=== PATIENT | male | born 1960 | race Caucasian/White ===

== ENCOUNTER 2018-05-23 17:57 | Inpatient (IN) ==
[2018-05-23] MEDS ORDERED: Sod Chloride 0.9% Inj 1,000 ML IV.SIG ONE (18:08)
[2018-05-23] MEDS ORDERED: Pantoprazole Inj 40 MG Vial IV.PUSH ONE (18:10)
--- NOTE | 2018-05-23 18:36 | CT ---
EXAM DATE: 05/23/2018 6:19 PM EST AGE/SEX: 57 years / Male INDICATIONS: Fell, Hit head, Positive Loss of Consciousness CLINICAL DATA: This is the patient's initial encounter. Patient reports that signs and symptoms have been present for 1 day and indicates a pain score of 7/10. MEDICAL/SURGICAL HISTORY: None. None. RADIATION DOSE: 56.12 CTDI (mGy) COMPARISON: No prior exams available for comparison. TECHNIQUE: CT of the head without contrast. Using automated exposure control and adjustment of the mA and/or kV according to patient size, radiation dose was kept as low as reasonably achievable to ob tain optimal diagnostic quality images. DICOM format image data is available electronically for revi ew and comparison. FINDINGS: Cerebrum: There is a focal hyperdensity in the high convexity right parietal occipital region (image #25) measuring 7 mm. No effacement of the adjacent sulci. There is good hope-white matter differenti ation. The ventricles are normal in size. No extra-axial fluid or blood. Posterior Fossa: The cerebellum and brainstem are intact. The 4th ventricle is midline. The cerebe llopontine angle is unremarkable. Extracranial: The visualized portion of the orbits is intact. Skull: No radiopaque foreign bodies in the scalp. The calvaria is intact. No evidence of skull fract ure. CONCLUSION: 1. 7 mm hyperdensity in one right high parietal occipital gyrus characteristic of acute hemorrhage. 2. No evidence of mass effect or cerebral edema. 3. Recommend follow-up CT scans. . . Electronically signed by: Lionel Acharya MD Board Certified Radiologist 05/23/2018 6:35 PM EST
[2018-05-23 18:41] LABS: Baso # (Auto) 0.2 th/mm3 (0.0-0.2); Baso % (Auto) 1.6 % (0.0-2.0); Eos # (Auto) 0.2 th/mm3 (0.0-0.4); Eos % (Auto) 1.7 % (0.0-4.0); Hematocrit 31.1 % (39.0-51.0); Hemoglobin 10.5 gm/dL (13.0-17.0); Lymph # (Auto) 4.5 th/mm3 (1.0-4.8); Lymph % (Auto) 32.7 % (9.0-44.0); Mean Corpuscular HGB Conc 33.9 % (32.0-36.0); Mean Corpuscular Hemoglobin 29.6 pg (27.0-34.0); Mean Corpuscular Volume 87.4 fL (80.0-100.0); Mean Platelet Volume 8.4 fL (7.0-11.0); Mono # (Auto) 0.9 th/mm3 (0.0-0.9); Mono % (Auto) 6.2 % (0.0-8.0); Neut % (Auto) 57.8 % (16.0-70.0); Platelet Count 294 th/mm3 (150-450); Red Blood Count 3.56 mil/mm3 (4.50-5.90); Red Cell Distribution Width 13.1 % (11.6-17.2); White Blood Count 13.8 th/mm3 (4.0-11.0)
[2018-05-23 18:50] LABS: Chloride 105 meq/L (98-107); Potassium 3.8 meq/L (3.5-5.1); Sodium 138 meq/L (136-145)
[2018-05-23 18:54] LABS: Albumin 3.3 g/dL (3.4-5.0); Anion Gap 10 meq/L (5-15); Blood Urea Nitrogen 39 mg/dL (7-18); Calcium 8.5 mg/dL (8.5-10.1); Carbon Dioxide 22.8 meq/L (21.0-32.0); Glucose,Random 128 mg/dL (74-106); Lipase 105 U/L (73-393); Magnesium 2.1 mg/dL (1.5-2.5)
[2018-05-23 18:56] LABS: INR 1.1 Ratio; Prothrombin Time 10.7 sec (9.8-11.6)
--- NOTE | 2018-05-23 18:56 | ED ---
HPI General Chief complaint: Head Injury Stated complaint: Seizure Time Seen by Provider: 05/23/18 18:00 Source: patient Mode of arrival: wheelchair Limitations: no limitations History of Present Illness HPI narrative: Patient is a 57-year-old male who comes in after a syncopal episode today. Per family, he has been having abdominal pain and black stools for about a week. He has history of diverticulitis and says he started taking antibiotics 3 days ago. He started feeling much worse today. He came out of the bathroom and passed out and hit his head. Since hitting his head, he has been vomiting and complaining of head pain. He denies fever or chills. He denies any urinary symptoms. Severity is moderate to severe. Related Data Allergies Allergy/AdvReac Type Severity Reaction Status Date / Time cashew nut Allergy Severe THROAT Unverified 11/12/16 15:17 SWELLING Review of Systems ROS: all other systems reviewed are negative Constitutional Denies fever(s) Eyes Denies blurry vision ENT Reports headache(s) Cardiovascular Denies chest pain and Reports diaphoresis Respiratory Denies cough and Denies dyspnea Gastrointestinal Reports abdominal pain and Reports melena Musculoskeletal Denies myalgias and Denies arthralgias Integumentary/Breasts Denies sores and Denies wounds Neurologic Denies focal weakness and Denies numbness [facility] Medical History Medical History Diverticulitis (Acute) Surgical History Surgical History History of back surgery (Acute) S/P right knee arthroscopy (Acute) Social History Social History Substance History: No History of Abuse Second Hand Smoke Exposure: No Smoking Status: Never smoker How Often Do You Have a Drink Containing Alcohol: 2 to 4 times a month Recent Travel in [facility] within the Last 8 Weeks: No Recent Out of Country Travel within the Last 8 Weeks: No Immunization History Tetanus Immunization: Unsure Exam Narrative Exam Narrative: GENERAL: Awake and alert, appears in distress. Diaphoretic. SKIN: No signs of infection, he is diaphoretic. Appears pale. HEAD: Atraumatic. Normocephalic. EYES: Pupils equal and round and reactive. No scleral icterus. EOMI. ENT: Mucous membranes pink and moist. NECK: Trachea midline. No JVD. CARDIOVASCULAR: Regular rate and rhythm. No murmur appreciated. RESPIRATORY: No accessory muscle use. Clear to auscultation. Breath sounds equal bilaterally. GASTROINTESTINAL: Abdomen soft, nondistended. Tender to palpation of LLQ. MUSCULOSKELETAL: No obvious deformities. No clubbing. No cyanosis. No edema. NEUROLOGICAL: Awake and alert. No obvious cranial nerve deficits. Motor grossly within normal limits. Normal speech. PSYCHIATRIC: Appropriate mood and affect; insight and judgment normal. Procedures Hemaprompt Stool Procedural Steps Taken: specimen placed in appropriate test area, developer placed on specimen and control areas and controls appropriately positive and negative Hemaprompt Stool Result: positive Course Initial Documented Vital Signs Pulse Rate 83 05/23/18 18:00 Respiratory Rate 18 05/23/18 18:00 Blood Pressure 103/48 L 05/23/18 18:00 Pulse Oximetry 95 05/23/18 18:00 Last Documented Vital Signs Temperature 98.1 F 05/23/18 18:38 Pulse Rate 74 05/23/18 18:38 Respiratory Rate 18 05/23/18 18:00 Blood Pressure 116/66 05/23/18 18:38 Pulse Oximetry 96 05/23/18 18:38 Medical Decision Making [facility] Narrative Medical decision making narrative: Patient is a 57 year old male who comes in after a syncopal episode today. He has had abdominal pain and dark stools for a week. Exam shows LLQ abdominal tenderness. Stool is positive for occult blood. Taken to CT for head CT based on head injury and new vomiting. IV established, labs sent. Given IVF, Zofran. Given Protonix. Blood ordered, but not given yet. CT head concerning for hemorrhage. Patient to be admitted to the ICU. Medical Screen Exam Complete: Yes Emergency Medical Condition: Yes Differential Diagnosis Differential Diagnosis: GI bleed, diverticulitis, ICH, perforation Medical Records Medical records reviewed: Yes I reviewed the patient's medical records. Lab Data Lab results reviewed: Yes I reviewed the patient's lab results. Result diagrams: 05/23/18 18:25 05/23/18 18:25 Lab Results 05/23/18 05/23/18 05/23/18 Range/Units 18:02 18:25 18:25 CBC w Diff Auto diff final WBC 13.8 H (4.0-11.0) th/mm3 RBC 3.56 L (4.50-5.90) mil/mm3 Hgb 10.5 L (13.0-17.0) gm/dL Hct 31.1 L (39.0-51.0) % MCV 87.4 (80.0-100.0) fL MCH 29.6 (27.0-34.0) pg MCHC 33.9 (32.0-36.0) % RDW 13.1 (11.6-17.2) % Plt Count 294 (150-450) th/mm3 MPV 8.4 (7.0-11.0) fL Neut % (Auto) 57.8 (16.0-70.0) % Lymph % (Auto) 32.7 (9.0-44.0) % Morgan % (Auto) 6.2 (0.0-8.0) % Eos % (Auto) 1.7 (0.0-4.0) % Baso % (Auto) 1.6 (0.0-2.0) % Neut # (Auto) 8.0 H (1.8-7.7) th/mm3 Lymph # (Auto) 4.5 (1.0-4.8) th/mm3 Morgan # (Auto) 0.9 (0.0-0.9) th/mm3 Eos # (Auto) 0.2 (0.0-0.4) th/mm3 Baso # (Auto) 0.2 (0.0-0.2) th/mm3 WBC Differential . Differential Comment . PT 10.7 (9.8-11.6) sec INR 1.1 Ratio APTT 21.0 L (23.4-31.7) sec Sodium (136-145) meq/L Potassium (3.5-5.1) meq/L Chloride (98-107) meq/L Carbon Dioxide (21.0-32.0) meq/L Anion Gap (5-15) meq/L BUN (7-18) mg/dL Creatinine (0.60-1.30) mg/dL Estimated GFR (>89) mL/min POC Glucose 124 (68-110) mg/dl Random Glucose (74-106) mg/dL Calcium (8.5-10.1) mg/dL Magnesium (1.5-2.5) mg/dL Total Bilirubin (0.2-1.0) mg/dL AST (15-37) U/L ALT (12-78) U/L Total Protein (6.4-8.2) g/dL Albumin (3.4-5.0) g/dL Lipase (73-393) U/L 05/23/18 Range/Units 18:25 CBC w Diff WBC (4.0-11.0) th/mm3 RBC (4.50-5.90) mil/mm3 Hgb (13.0-17.0) gm/dL Hct (39.0-51.0) % MCV (80.0-100.0) fL MCH (27.0-34.0) pg MCHC (32.0-36.0) % RDW (11.6-17.2) % Plt Count (150-450) th/mm3 MPV (7.0-11.0) fL Neut % (Auto) (16.0-70.0) % Lymph % (Auto) (9.0-44.0) % Morgan % (Auto) (0.0-8.0) % Eos % (Auto) (0.0-4.0) % Baso % (Auto) (0.0-2.0) % Neut # (Auto) (1.8-7.7) th/mm3 Lymph # (Auto) (1.0-4.8) th/mm3 Morgan # (Auto) (0.0-0.9) th/mm3 Eos # (Auto) (0.0-0.4) th/mm3 Baso # (Auto) (0.0-0.2) th/mm3 WBC Differential Differential Comment PT (9.8-11.6) sec INR Ratio APTT (23.4-31.7) sec Sodium 138 (136-145) meq/L Potassium 3.8 (3.5-5.1) meq/L Chloride 105 (98-107) meq/L Carbon Dioxide 22.8 (21.0-32.0) meq/L Anion Gap 10 (5-15) meq/L BUN 39 H (7-18) mg/dL Creatinine 1.40 H (0.60-1.30) mg/dL Estimated GFR 52 L (>89) mL/min POC Glucose (68-110) mg/dl Random Glucose 128 H (74-106) mg/dL Calcium 8.5 (8.5-10.1) mg/dL Magnesium 2.1 (1.5-2.5) mg/dL Total Bilirubin 0.3 (0.2-1.0) mg/dL AST 14 L (15-37) U/L ALT 22 (12-78) U/L Total Protein 6.4 (6.4-8.2) g/dL Albumin 3.3 L (3.4-5.0) g/dL Lipase 105 (73-393) U/L Imaging Data Radiologist's impression: Head CT 05/23/18 18:00 CONCLUSION: 1. 7 mm hyperdensity in one right high parietal occipital gyrus characteristic of acute hemorrhage. 2. No evidence of mass effect or cerebral edema. 3. Recommend follow-up CT scans. . . Discharge Plan Discharge Disposition Patient Disposition: ED Admit(ED Internal Use Only) Discharge Condition Condition: Critical Discharge Details Diagnosis: Acute GI bleeding, Intraparenchymal hemorrhage of brain Physicians Team ED Provider: Orin Aquino Primary Care Provider: Nnamdi Miller Discharge Interventions Interventions: Vital Signs Last Done: 05/23/18 18:38 Status ED Status: With Doctor
[2018-05-23 18:57] LABS: Alanine Aminotransferase 22 U/L (12-78); Aspartate Aminotransferase 14 U/L (15-37); Glomerular Filtration Rate 52 mL/min (>89)
[2018-05-23 18:59] LABS: Total Protein 6.4 g/dL (6.4-8.2)
[2018-05-23 19:00] LABS: Alkaline Phosphatase 43 U/L (45-117)
[2018-05-23] MEDS ORDERED: Sodium Chlor 0.9% Inj 250 ML IV.SIG SCH (19:00)
[2018-05-23 19:17] LABS: Creatine Kinase 67 U/L (39-308)
[2018-05-23] MEDS: Pantoprazole Inj 80 MG in Sodium Chlor 0.9% Inj 100 ML IV.CONT SCH (19:47)
--- NOTE | 2018-05-23 19:48 | CT ---
EXAM DATE: 05/23/2018 7:41 PM EST AGE/SEX: 57 years / Male INDICATIONS: Diaphoretic. Lower abdominal pain, worse on the left and black stools. CLINICAL DATA: This is the patient's initial encounter. Patient reports that signs and symptoms have been present for 4 - 6 days and indicates a pain score of 7/10. MEDICAL/SURGICAL HISTORY: Diverticulitis. . Back surgery. ORAL CONTRAST: No oral contrast ingested. RADIATION DOSE: 14.95 CTDI (mGy) COMPARISON: No prior exams available for comparison. TECHNIQUE: Multiple contiguous axial images were obtained through the abdomen and pelvis following b olus infusion of 95 ml Omnipaque 350 (iohexol) nonionic water-soluble contrast as a single exam dos e. No oral contrast ingested. Using automated exposure control and adjustment of the mA and/or kV ac cording to patient size, radiation dose was kept as low as reasonably achievable to obtain optimal di agnostic quality images. DICOM format image data is available electronically for review and comparis on. FINDINGS: Lower Lungs: The visualized lower lungs are clear. Liver: The liver has a homogeneous density without solid lesion. There are several cysts in the left lobe and one in the right lobe measuring up to 1 cm in size. There is no dilation of the biliary tree . No calcified gallstones. Spleen: Homogeneous density without enlargement. Pancreas: Unremarkable without mass or calcification. Kidneys: Normal in size and shape. No evidence of mass or hydronephrosis. 1 cm cortical cyst on the right and parapelvic cyst on the left. Adrenal Glands: Unremarkable. Aorta: The aorta and proximal iliac vessels are grossly unremarkable without aneurysmal dilation. Bowel/Mesentery: No dilated loops of small or large bowel. The appendix is located medial to the cec um and has a normal size. Scattered sigmoid diverticula without radiographic evidence of diverticulit is. Abdominal Wall: Intact. Retroperitoneum: No evidence of adenopathy in the retrocrural, para-aortic, or deep pelvic regions. Bladder: Contours are smooth. Reproductive Organs: No abnormal masses or calcifications seen. Bilateral metallic clips from vasect kim. Inguinal: The inguinal region is unremarkable without evidence of adenopathy. Bony Structures: Unremarkable. CONCLUSION: 1. Negative CT abdomen/pelvis with contrast. Electronically signed by: Lionel Acharya MD Board Certified Radiologist 05/23/2018 7:47 PM EST
--- NOTE | 2018-05-23 20:42 | ECG ---
Date Performed: 05/23/2018 Time Performed: 18:21:39 PTAGE: 57 years EKG: Sinus rhythm NORMAL ECG NO PREVIOUS TRACING DOCTOR: Irma Verdin Interpretating Date/Time 05/23/2018 20:39:36
[2018-05-23] MEDS ORDERED: Magnesium Oxide 400 MG Tablet PO PRN (21:08)
[2018-05-23] MEDS ORDERED: Potassium Phosphate Inj 30 MMOL in Sodium Chlor 0.9% Inj 250 ML IV.SIG PRN (21:08)
[2018-05-23] MEDS ORDERED: Bisacodyl 10 MG Supp RECTAL PRN (21:08)
[2018-05-23] MEDS ORDERED: Potassium Chlor 20 mEq Premix 20 MEQ/100 ML PIGGYBACK IV.SIG PRN ×2 (21:08)
[2018-05-23] MEDS ORDERED: Potassium Phosphate 500 MG Soluble Tablet PO PRN ×2 (21:08)
[2018-05-23] MEDS ORDERED: Potassium Chloride Liq 20 MEQ/15 ML UDC PO PRN ×2 (21:08)
[2018-05-23] MEDS ORDERED: Potassium Chlor 40 mEq Premix 40 MEQ/100 ML PIGGYBACK IV.SIG PRN ×2 (21:08)
[2018-05-23] MEDS ORDERED: Sodium Phosphate Inj 30 MMOL in Sodium Chlor 0.9% Inj 250 ML IV.SIG PRN (21:08)
[2018-05-23] MEDS ORDERED: Magnesium Sulfate Inj 4 GM in Sodium Chlor 0.9% Inj 92 ML IV.SIG PRN (21:08)
[2018-05-23] MEDS ORDERED: Magnesium Sulfate Inj 2 GM in Sodium Chlor 0.9% Inj 96 ML IV.SIG PRN (21:08)
--- NOTE | 2018-05-23 21:28 | P.HPCC ---
History of Present Illness Service: [facility] Primary Care Physician: Nnamdi Miller MD Chief Complaint: Syncope History of Present Illness: 57yM presenting with syncope. The patient states that he has a history of diverticulitis, and over the past week has been having "sharp/ aching" LLQ abdominal pain which radiates to the midline, constant, worse with movement or palpation and not improved by anything, associated with nausea and melena. He says that earlier today, he had nausea and an episode of coffee ground emesis. He says that he tried to stand up to go to the bathroom when he began to feel "lightheaded like I was going to pass out" and the next thing he remembers is waking up on the floor. He initially presented to the emergency department at [facility], where he was found to have (+) stool guaiac and small ICH. He denies use of anticoagulants/ antiplatelets but admits to using at least 800 mg of Motrin per day for the past several weeks for chronic low back pain. Family history non-contributory. The patient thinks he may have seen Dr. Hunetr of GI in the past but isn't sure ; he's had a colonoscopy previously but is unsure if he's had an endoscopy. No known history of PUD. Inpatient Certification: I certify that the inpatient services were ordered in accordance with Medicare regulations governing the order. This includes certification that hospital inpatient services are reasonable and necessary and in the case of services not specified as inpatient-only under 42 CFR 419.22(n), that they are appropriately provided as inpatient services in accordance to with the 2-midnight benchmark under 43 CFR 412.3(e) Estimated Total Length of Stay (Days): 4 Plans for Post Hospital Care: Not yet determined Review of Systems All other systems reviewed negative except as stated in HPI Constitutional: Denies fever(s) Eyes: Denies blurry vision Ears, Nose, Mouth, and Throat: Denies nasal congestion Cardiovascular: Denies chest pain, Denies rapid, pounding, or irregular heartbeat Respiratory: Denies cough Gastrointestinal: Reports abdominal pain, Reports nausea, Reports vomiting Genitourinary: Reports painful urination Musculoskeletal: Reports back pain Skin/Breast: Denies rash Neurologic: Reports dizziness PMFSH - History History Provided By: Patient, Family Member - Medical History Medical History: Medical History (Last Reviewed 05/23/18 @ 21:18 by Carolyn Andrea DO) Diverticulitis - Surgical History Surgical History: Surgical History (Last Reviewed 05/23/18 @ 21:18 by Carolyn Andrea DO) History of back surgery S/P right knee arthroscopy - Social History I have reviewed the patient's Social History: Yes - Tobacco History Second Hand Smoke Exposure: No Tobacco Use In Past 30 Days: No Smoking Status: Never smoker - Alcohol History How Often Do You Have a Drink Containing Alcohol: 2 to 4 times a month - Substance Use History Substance History: No History of Abuse - Travel History Recent Travel in the [place] Within the Last 8 Weeks: No Recent Travel Out of the Country Within the Last 8 Weeks: No - Immunization History Tetanus Immunization: Unsure Medications and Allergies Active Medications: Active Medications Al Hydroxide/Mg Hydroxide (Milk Of Magnanthony Liq) 30 ml PO Q12H PRN PRN Reason: Mild Constipation Albuterol (Duoneb Neb (Prn)) 1 ampul NEB Q2HR NEB PRN PRN Reason: WHEEZING Bisacodyl (Dulcolax Supp) 10 mg RECTAL DAILY PRN PRN Reason: SEVERE CONSITIPATION Chlorhexidine Gluconate (Chlorhexidine 2% Cloth) 3 pack TOPICAL DAILY@0400 [facility] Stop: 05/29/18 03:59 Chlorhexidine Gluconate (Chlorhexidine 2% Cloth) 3 pack TOPICAL DAILY@0400 PRN PRN Reason: Extra cloth needed Stop: 05/29/18 03:59 Pantoprazole Sodium 80 mg/ (Sodium Chloride) 100 mls @ 10 mls/hr IV.CONT CONT [facility] Last Infusion: 05/23/18 20:14 Dose: 10 mls/hr Magnesium Sulfate 4 gm/ Sodium (Chloride) 100 mls @ 50 mls/hr IV.SIG UNSCH PRN PRN Reason: For Magnesium 0.9 - 1.1 mg/dL Magnesium Sulfate 2 gm/ Sodium (Chloride) 100 mls @ 50 mls/hr IV.SIG UNSCH PRN PRN Reason: For Magnesium 1.2 - 1.6 mg/dL Sodium Chloride (Ns Inj) 1,000 mls @ 84 mls/hr IV.CONT .[id number] [facility] Potassium Chloride (Kcl 40 Meq Premix Inj) 40 meq in 100 mls @ 25 mls/hr IV.SIG Q2H PRN PRN Reason: For Potassium 2.8 - 3.2 mEq/L Potassium Chloride (Kcl 20 Meq Premix Inj) 20 meq in 100 mls @ 50 mls/hr IV.SIG Q2H PRN PRN Reason: For Potassium 3.3 - 3.5 mEq/L Potassium Chloride (Kcl 20 Meq Premix Inj) 20 meq in 100 mls @ 50 mls/hr IV.SIG Q2H PRN PRN Reason: For Potassium 2.8 - 3.2 mEq/L Potassium Phosphate 30 mmol/ (Sodium Chloride) 260 mls @ 42 mls/hr IV.SIG UNSCH PRN PRN Reason: SEE LABEL COMMENTS Sodium Phosphate 30 mmol/ (Sodium Chloride) 260 mls @ 42 mls/hr IV.SIG UNSCH PRN PRN Reason: For Phosphorus < 2.5 mg/dL Potassium Chloride (Kcl 40 Meq Premix Inj) 40 meq in 100 mls @ 25 mls/hr IV.SIG UNSCH PRN PRN Reason: For Potassium 3.3 - 3.5 mEq/L Lactulose (Lactulose Liq) 30 ml PO DAILY PRN PRN Reason: SEVERE CONSITIPATION Magnesium Oxide (Mag-Ox) 800 mg PO UNSCH PRN PRN Reason: For Magnesium 1.2 - 1.6 mg/dL Ondansetron HCl (Zofran Inj) 4 mg IV.PUSH Q6H PRN PRN Reason: NAUSEA OR VOMITING Potassium Chloride (Kcl Liq) 40 meq PO UNSCH PRN PRN Reason: Potassium level 3.3-3.5 mEq/L Potassium Chloride (Kcl Liq) 40 meq PO UNSCH PRN PRN Reason: POTASSIUM LESS THAN 3.5 Potassium Phosphate (K-Phos Original) 2,000 mg PO Q4H PRN PRN Reason: Phosphorus Less Than 2.5 mg/dL Potassium Phosphate (K-Phos Original) 2,000 mg PO UNSCH PRN PRN Reason: SEE LABEL COMMENTS Senna/Docusate Sodium (Swathi-Colace) 1 tab PO BID [facility]IER Sennosides (Senokot) 17.2 mg PO Q12H PRN PRN Reason: Moderate Constipation Sodium Chloride (Ns Flush) 2 ml IV.FLUSH PRN PRN PRN Reason: FLUSH AFTER USING IV ACCESS Sodium Chloride (Ns Flush) 2 ml IV.FLUSH BID [facility] Sodium Chloride (Ns Flush) 2 ml IV.FLUSH PRN PRN PRN Reason: FLUSH AFTER USING IV ACCESS Allergies Allergy/AdvReac Type Severity Reaction Status Date / Time cashew nut Allergy Severe THROAT Verified 05/23/18 19:29 SWELLING ciprofloxacin [From Cipro] AdvReac Intermediate Joint Pain Verified 05/23/18 19: 29 Home Medications Medication Instructions Recorded Confirmed Type calcium carbonate [Tums] 400 mg PO BID 05/23/18 05/23/18 History Results - Labs CBC & Chem 7: 05/23/18 18:25 05/23/18 18:25 Labs: Short CBC 05/23/18 Range/Units 18:25 WBC 13.8 H (4.0-11.0) th/mm3 Hgb 10.5 L (13.0-17.0) gm/dL Hct 31.1 L (39.0-51.0) % Plt Count 294 (150-450) th/mm3 BMP 05/23/18 18:25 Sodium 138 Potassium 3.8 Chloride 105 Carbon Dioxide 22.8 BUN 39 H Creatinine 1.40 H Calcium 8.5 Cardiac Enzymes 05/23/18 Range/Units 18:25 Total Creatine Kinase 67 (39-308) U/L Troponin I Less than 0.02 L (0.02-0.05) ng/mL Liver Function 05/23/18 Range/Units 18:25 Total Bilirubin 0.3 (0.2-1.0) mg/dL AST 14 L (15-37) U/L ALT 22 (12-78) U/L Alkaline Phosphatase 43 L (45-117) U/L Albumin 3.3 L (3.4-5.0) g/dL - Imaging Impressions Head CT 05/23/18 18:00 CONCLUSION: 1. 7 mm hyperdensity in one right high parietal occipital gyrus characteristic of acute hemorrhage. 2. No evidence of mass effect or cerebral edema. 3. Recommend follow-up CT scans. . . Abdomen/Pelvis CT 05/23/18 18:08 CONCLUSION: 1. Negative CT abdomen/pelvis with contrast. Exam Vital signs: Vital Signs 05/23/18 18:00 05/23/18 18:15 05/23/18 18:38 Temperature 98.1 F Pulse Rate 83 74 74 Respiratory Rate 18 Blood Pressure 103/48 L 90/60 L 116/66 Pulse Oximetry 95 96 02/23/19 18:45 05/23/18 19:41 Temperature 97.9 F Pulse Rate 87 Respiratory Rate 18 Blood Pressure 122/64 140/65 Pulse Oximetry 94 L Intake & Output 05/23/18 05/23/18 05/24/18 06:59 18:59 06:59 Intake Total 1002.7 / 1002.7 Balance 1002.7 / 1002.7 Weight 90.718 kg Intake: IV 1002.7 / 1002.7 Protonix Inj 80 MG In NS Inj 2.7 / 2.7 100 ML @ 10 mls/hr IV.CONT CONT [facility] Rx#:[id number] NS Inj 1,000 ML @ Wide Open IV. 1000 / 1000 SIG BOLUS ONE Rx#:[id number] Narrative: GEN: Well-appearing, no acute distress HEENT: No obvious external signs of head trauma, PERRL, no facial or intraoral trauma NECK: Trachea midline CARDIO: Regular rate and rhythm, no murmurs PULM: Clear to auscultation bilaterally ABD/GI: Soft, non-distended, mild LLQ tenderness, no guarding or rebound EXT/MSK: No peripheral edema SKIN: Warm and well-perfused, no rashes or lesions NEURO: GCS 15, speech clear and fluent, no slurred speech or aphasia, moves all extremities PSYCH: Appropriate affect Caprini VTE Risk Assessment Caprini VTE Risk Assessment: No/Low Risk (score <= 1) VTE Pharmacological Exception Reason: Hemorrhage Caprini Risk Assessment Model: Point Value = 1 Point Value = 2 Point Value = 3 Point Value = 5 Age 41-60 Minor surgery BMI > 25 kg/m2 Swollen legs Varicose veins or History of unexplained or recurrent spontaneous Oral contraceptives or hormone replacement Sepsis (< 1 month) Serious lung disease, including pneumonia (< 1 month) Abnormal pulmonary function Acute myocardial infarction Congestive heart failure (< 1 month) History of inflammatory bowel disease Medical patient at bed rest Age 61-74 Arthroscopic surgery Major open surgery (> 45 min) Laparoscopic surgery (> 45 min) Malignancy Confined to bed (> 72 hours) Immobilizing plaster cast Central venous access Age >= 75 History of VTE Family history of VTE Factor V Leiden Prothrombin [id number] Lupus anticoagulant Anticardiolipin antibodies Elevated serum homocysteine Heparin-induced thrombocytopenia Other congenital or acquired thrombophilia Stroke (< 1 month) Elective arthroplasty Hip, pelvis, or leg fracture Acute spinal cord injury (< 1 month) Prophylaxis Regimen: Total Risk Factor Score Risk Level Prophylaxis Regimen 0-1 Low Early ambulation 2 Moderate Order ONE of the following: *Sequential Compression Device (SCD) *Heparin 5000 units SQ BID 3-4 Higher Order ONE of the following medications: *Heparin 5000 units SQ TID *Enoxaparin/Lovenox 40 mg SQ daily (WT < 150 kg, CrCl > 30 mL/min) *Enoxaparin/Lovenox 30 mg SQ daily (WT < 150 kg, CrCl > 10-29 mL/min) *Enoxaparin/Lovenox 30 mg SQ BID (WT < 150 kg, CrCl > 30 mL/min) AND/OR *Sequential Compression Device (SCD) 5 or more Highest Order ONE of the following medications: *Heparin 5000 units SQ TID (Preferred with Epidurals) *Enoxaparin/Lovenox 40 mg SQ daily (WT < 150 kg, CrCl > 30 mL/min) *Enoxaparin/Lovenox 30 mg SQ daily (WT < 150 kg, CrCl > 10-29 mL/min) *Enoxaparin/Lovenox 30 mg SQ BID (WT < 150 kg, CrCl > 30 mL/min) AND *Sequential Compression Device (SCD) Assessment and Plan - Assessment and Plan Plan: 57yM presenting with GI bleed, syncope, and small intraparenchymal hemorrhage s/ p unwitnessed fall at home NEURO: Syncopal episode Intracranial hemorrhage -GCS 15, neurologically intact on exam -Not on anticoagulation -Neurosurgery consulted by ED, AM consult -Patient's ICH is very small, likely does not need seizure prophylaxis or repeat imaging unless his exam changes CARDIO: Syncope -Likely due to dehydration/ GI bleed -Cardiac monitoring -Initial troponin negative; check 2nd trop, if still negative will stop trending PULM: -Incentive spirometer F/E/N: -NPO for now -Maintenance IV fluids -ICU electrolyte protocol HEME, GI: GI bleed, likely upper -Protonix bolus/ gtt started in ED -NPO -Check AM H/H -No indication for transfusion at this point -Hold all anticoagulants/ antiplatelets for now -GI consult, will likely need endoscopy/ possible colonoscopy PROPHY: -SCDs only, chemical DVT prophylaxis contraindicated in the setting of ICH and GI bleed -Protonix gtt OVERALL: This patient is critically ill and requires ICU level of care. He is at high risk for decompensation. Counseling/ Coordination of Care: This patient is critically ill with impairment of one or more vital organ systems with a high probability of imminent or life-threatening deterioration. High-complexity medical decision making was required to support vital organ function and/ or prevent deterioration of the patient's condition. Total critical care time spent is 48 minutes giving full attention to this patient. This includes examining the patient, gathering history from someone other than the patient (i.e. chart review), discussing the patient's care with other providers, managing the patient's blood pressure and ventilator settings, ordering and interpreting radiologic studies, ordering and interpreting laboratory values, managing the patient's sedation requirements, re-evaluation at frequent intervals, and documentation. Amount of time is separate from teaching, counseling the patient and/or family, and exclusive of procedures. Code Status: Full
[2018-05-23] MEDS: Sod Chloride 0.9% Inj 1,000 ML IV.CONT SCH (21:45)
[2018-05-23 22:09] LABS: Bilirubin,Urine Negative (Negative); Clarity,Urine Clear (Clear); Color,Urine Straw (Yellw/Straw); Glucose,Urine (UA) Negative (Negative); Leukocyte Esterase,Urine Trace (Negative); Nitrite,Urine Negative (Negative); Specific Gravity,Urine 1.036 (1.002-1.035)
[2018-05-24] MEDS ORDERED: Chlorhexidine Gluconate 2% 1 Pack (2 Cloths) TOPICAL PRN (04:00)
[2018-05-24] MEDS: Pantoprazole Inj 80 MG in Sodium Chlor 0.9% Inj 100 ML IV.CONT SCH ×2 (04:16→16:28)
[2018-05-24] MEDS: Chlorhexidine Gluconate 2% 1 Pack (2 Cloths) TOPICAL SCH (04:21)
[2018-05-24 04:52] LABS: Baso # (Auto) 0.1 th/mm3 (0.0-0.2); Baso % (Auto) 0.6 % (0.0-2.0); Eos % (Auto) 0.3 % (0.0-4.0); Hematocrit 25.5 % (39.0-51.0); Hemoglobin 8.6 gm/dL (13.0-17.0); Lymph % (Auto) 16.1 % (9.0-44.0); Mean Corpuscular HGB Conc 33.8 % (32.0-36.0); Mean Corpuscular Hemoglobin 30.3 pg (27.0-34.0); Mean Corpuscular Volume 89.8 fL (80.0-100.0); Mean Platelet Volume 8.4 fL (7.0-11.0); Mono # (Auto) 0.8 th/mm3 (0.0-0.9); Mono % (Auto) 6.7 % (0.0-8.0); Neut # (Auto) 9.4 th/mm3 (1.8-7.7); Neut % (Auto) 76.3 % (16.0-70.0); Platelet Count 240 th/mm3 (150-450); Red Blood Count 2.85 mil/mm3 (4.50-5.90); Red Cell Distribution Width 14.1 % (11.6-17.2); White Blood Count 12.3 th/mm3 (4.0-11.0)
[2018-05-24 04:56] LABS: INR 1.1 Ratio; Prothrombin Time 10.8 sec (9.8-11.6)
[2018-05-24 05:01] LABS: Albumin 3.2 g/dL (3.4-5.0); Anion Gap 8 meq/L (5-15); Aspartate Aminotransferase 12 U/L (15-37); Blood Urea Nitrogen 32 mg/dL (7-18); Calcium 7.7 mg/dL (8.5-10.1); Carbon Dioxide 24.7 meq/L (21.0-32.0); Chloride 108 meq/L (98-107); Glomerular Filtration Rate 69 mL/min (>89); Glucose,Random 104 mg/dL (74-106); Potassium 3.8 meq/L (3.5-5.1); Sodium 141 meq/L (136-145)
[2018-05-24 05:02] LABS: Alanine Aminotransferase 21 U/L (12-78); Phosphorus 2.6 mg/dL (2.5-4.9)
[2018-05-24 05:04] LABS: Alkaline Phosphatase 38 U/L (45-117)
--- NOTE | 2018-05-24 08:07 | P.PNCC ---
Subjective Subjective Remarks/Hospital Course: 57-year-old male presenting with syncope. The patient states that he has a history of diverticulitis, and over the past week has been having "sharp/ aching " LLQ abdominal pain which radiates to the midline, constant, worse with movement or palpation and not improved by anything, associated with nausea and melena. He says that earlier today, he had nausea and an episode of coffee ground emesis. He says that he tried to stand up to go to the bathroom when he began to feel "lightheaded like I was going to pass out" and the next thing he remembers is waking up on the floor. He initially presented to the emergency department at [place], where he was found to have (+) stool guaiac and small ICH. He denies use of anticoagulants/ antiplatelets but admits to using at least 800 mg of Motrin per day for the past several weeks for chronic low back pain. The patient thinks he may have seen Dr. Hunter of GI in the past but isn't sure; he's had a colonoscopy previously but is unsure if he's had an endoscopy. No known history of PUD. 05/24: No more hematemesis overnight. Hemodynamically stable. Awaiting for GI evaluation Objective Vital Signs / I&O: Vital Signs 05/23/18 18:00 05/23/18 18:15 05/23/18 18:38 Temperature 98.1 F Pulse Rate 83 74 74 Respiratory Rate 18 Blood Pressure 103/48 L 90/60 L 116/66 Pulse Oximetry 95 96 05/23/18 18:45 05/23/18 19:41 05/23/18 21:08 Temperature 97.9 F Pulse Rate 87 80 Respiratory Rate 18 24 Blood Pressure 122/64 140/65 Pulse Oximetry 94 L 98 05/23/18 21:44 05/23/18 22:00 05/23/18 22:28 Temperature 98.4 F Pulse Rate 84 85 83 Respiratory Rate 30 H 22 22 Blood Pressure 103/60 103/65 101/64 Pulse Oximetry 96 97 96 05/23/18 22:58 05/23/18 23:00 05/23/18 23:28 Temperature Pulse Rate 83 110 H 80 Respiratory Rate 33 H 37 H 25 H Blood Pressure 104/73 99/58 L Pulse Oximetry 98 100 98 05/24/18 00:00 05/24/18 00:03 05/24/18 01:00 Temperature 98.0 F Pulse Rate 78 83 82 Respiratory Rate 31 H 19 19 Blood Pressure 102/56 L 102/56 L Pulse Oximetry 98 97 97 05/24/18 01:03 05/24/18 02:00 05/24/18 02:03 Temperature Pulse Rate 86 83 82 Respiratory Rate 25 H 18 23 Blood Pressure 100/58 L 103/58 L Pulse Oximetry 99 97 99 05/24/18 03:00 05/24/18 03:03 05/24/18 04:00 Temperature 98.0 F Pulse Rate 84 81 86 Respiratory Rate 23 18 20 Blood Pressure 103/58 L 110/59 L Pulse Oximetry 98 99 98 05/24/18 04:07 05/24/18 04:17 05/24/18 05:00 Temperature Pulse Rate 98 H 83 81 Respiratory Rate 35 H 20 18 Blood Pressure 110/59 L Pulse Oximetry 95 94 L 05/24/18 05:03 05/24/18 06:00 05/24/18 06:03 Temperature Pulse Rate 81 80 80 Respiratory Rate 20 14 14 Blood Pressure 98/51 L 93/51 L Pulse Oximetry 95 95 96 Intake & Output 05/23/18 05/24/18 05/24/18 18:59 06:59 18:59 Intake Total 1100.0 / 1100.0 Output Total 1100 / 1100 Balance 0 / 0 Weight 90.718 kg 94.5 kg Intake: IV 1100.0 / 1100.0 Protonix Inj 80 MG In NS Inj 100.0 / 100.0 100 ML @ 10 mls/hr IV.CONT CONT [facility] Rx#:[id number] NS Inj 1,000 ML @ Wide Open IV. 1000 / 1000 SIG BOLUS ONE Rx#:[id number] Output: Urine 1100 / 1100 Other: Date of Last Bowel Movement 05/24/18 # Bowel Movements 1 Weight On Admission 94.5 kg Result Diagrams: 05/24/18 03:42 05/24/18 03:42 Imaging: Impressions Head CT 05/23/18 18:00 CONCLUSION: 1. 7 mm hyperdensity in one right high parietal occipital gyrus characteristic of acute hemorrhage. 2. No evidence of mass effect or cerebral edema. 3. Recommend follow-up CT scans. . . Abdomen/Pelvis CT 05/23/18 18:08 CONCLUSION: 1. Negative CT abdomen/pelvis with contrast. Objective Remarks: GEN: Well-appearing, no acute distress HEENT: No obvious external signs of head trauma, PERRL, no facial or intraoral trauma NECK: Trachea midline CARDIO: Regular rate and rhythm, no murmurs PULM: Clear to auscultation bilaterally ABD/GI: Soft, non-distended, mild LLQ tenderness, no guarding or rebound EXT/MSK: No peripheral edema SKIN: Warm and well-perfused, no rashes or lesions NEURO: GCS 15, speech clear and fluent, no slurred speech or aphasia, moves all extremities PSYCH: Appropriate affect Assessment and Plan - Assessment and Plan Plan: 57yM presenting with GI bleed, syncope, and small intraparenchymal hemorrhage s/ p unwitnessed fall at home NEURO: Syncopal episode Intracranial hemorrhage -GCS 15, neurologically intact on exam -Not on anticoagulation -Neurosurgery consulted by ED, AM consult -Patient's ICH is very small, likely does not need seizure prophylaxis or repeat imaging unless his exam changes CARDIO: Syncope -Likely due to dehydration/ GI bleed -Cardiac monitoring -No history of chest pain -Initial troponin negative; check 2nd trop, if still negative will stop trending PULM: -Incentive spirometer while awake F/E/N: -NPO for now -Maintenance IV fluids -ICU electrolyte protocol HEME, GI: GI bleed, likely upper -Protonix bolus/ gtt started in ED -NPO -Check AM H/H -No indication for transfusion at this point -Hold all anticoagulants/ antiplatelets for now -GI consult, will likely need endoscopy/ possible colonoscopy PROPHY: -SCDs only, chemical DVT prophylaxis contraindicated in the setting of ICH and GI bleed -Protonix gtt OVERALL: This patient is critically ill and requires ICU level of care. He is at high risk for decompensation. 35 minutes of critical care
--- NOTE | 2018-05-24 08:55 | P.CONGI ---
History of Present Illness Consult date: 05/24/18 Requesting physician: Carolyn Andrea Consult reason: gi bleed Chief complaint: Gi bleed History of Present Illness: 57-year-old male with a history of GERD hand diverticulitis presented to ER after episode of syncope. Patient states he has had multiple episodes of what he believes to be diverticulitis over the past years. He typically has left lower quadrant pain associated with some dizziness and nausea as well as constipation followed by diarrhea. Symptoms typically resolve with antibiotics. He began experiencing the typical symptoms earlier this week. He then noticed black tarry stools and increasing dizziness followed by an episode of syncope. He presented to the ER and it was then he had one episode of coffee -ground emesis. Patient admits to taking ibuprofen daily for the past several weeks for low back pain. He has a history of GERD and takes icop-lri-ccasile acid reducers daily. Workup in the ER included CT which showed diverticulosis but no evidence of active diverticulitis. Initial labs included a white count of 13.8, hemoglobin of 10.5 and hematocrit of 31.1. Subsequent labs with white blood cell count of 12.3 with hemoglobin 8.6 and hematocrit of 25.5. Patient states this morning he passed dark red stool with clots. He has had no further vomiting. On exam he has mild left lower quadrant tenderness to palpation without rebound. <Angelina Martin - Last Filed: 05/24/18 08:35> [facility] - History History Provided By: Patient, Family Member - Medical History Medical History: Medical History (Last Reviewed 05/23/18 @ 21:18 by Carolyn Andrea DO) Diverticulitis - Surgical History Surgical History: Surgical History (Last Reviewed 05/23/18 @ 21:18 by Carolyn Andrea DO) History of back surgery S/P right knee arthroscopy - Tobacco History Second Hand Smoke Exposure: No Tobacco Use In Past 30 Days: No Smoking Status: Never smoker - Alcohol History How Often Do You Have a Drink Containing Alcohol: 2 to 4 times a month - Substance Use History Substance History: No History of Abuse - Travel History Recent Travel in the [place] Within the Last 8 Weeks: No Recent Travel Out of the Country Within the Last 8 Weeks: No - Immunization History Tetanus Immunization: Unsure <Angelina Martin - Last Filed: 05/24/18 08:35> - Medical History Medical History: Medical History (Last Reviewed 05/23/18 @ 21:18 by Carolyn Andrea DO) Diverticulitis - Surgical History Surgical History: Surgical History (Last Reviewed 05/23/18 @ 21:18 by Carolyn Andrea DO) History of back surgery S/P right knee arthroscopy <Sonu Yung - Last Filed: 05/24/18 20:21> Medications and Allergies Active Medications: Active Medications Al Hydroxide/Mg Hydroxide (Milk Of Magnanthony Liq) 30 ml PO Q12H PRN PRN Reason: Mild Constipation Albuterol (Duoneb Neb (Prn)) 1 ampul NEB Q2HR NEB PRN PRN Reason: WHEEZING Bisacodyl (Dulcolax Supp) 10 mg RECTAL DAILY PRN PRN Reason: SEVERE CONSITIPATION Chlorhexidine Gluconate (Chlorhexidine 2% Cloth) 3 pack TOPICAL DAILY@0400 [facility] Stop: 05/29/18 03:59 Last Admin: 05/24/18 04:21 Dose: 3 pack Chlorhexidine Gluconate (Chlorhexidine 2% Cloth) 3 pack TOPICAL DAILY@0400 PRN PRN Reason: Extra cloth needed Stop: 05/29/18 03:59 Pantoprazole Sodium 80 mg/ (Sodium Chloride) 100 mls @ 10 mls/hr IV.CONT CONT [facility] Last Admin: 05/24/18 04:16 Dose: 10 mls/hr Magnesium Sulfate 4 gm/ Sodium (Chloride) 100 mls @ 50 mls/hr IV.SIG UNSCH PRN PRN Reason: For Magnesium 0.9 - 1.1 mg/dL Magnesium Sulfate 2 gm/ Sodium (Chloride) 100 mls @ 50 mls/hr IV.SIG UNSCH PRN PRN Reason: For Magnesium 1.2 - 1.6 mg/dL Sodium Chloride (Ns Inj) 1,000 mls @ 84 mls/hr IV.CONT .[id number] [facility] Last Admin: 05/23/18 21:45 Dose: 84 mls/hr Potassium Chloride (Kcl 40 Meq Premix Inj) 40 meq in 100 mls @ 25 mls/hr IV.SIG Q2H PRN PRN Reason: For Potassium 2.8 - 3.2 mEq/L Potassium Chloride (Kcl 20 Meq Premix Inj) 20 meq in 100 mls @ 50 mls/hr IV.SIG Q2H PRN PRN Reason: For Potassium 3.3 - 3.5 mEq/L Potassium Chloride (Kcl 20 Meq Premix Inj) 20 meq in 100 mls @ 50 mls/hr IV.SIG Q2H PRN PRN Reason: For Potassium 2.8 - 3.2 mEq/L Potassium Phosphate 30 mmol/ (Sodium Chloride) 260 mls @ 42 mls/hr IV.SIG UNSCH PRN PRN Reason: SEE LABEL COMMENTS Sodium Phosphate 30 mmol/ (Sodium Chloride) 260 mls @ 42 mls/hr IV.SIG UNSCH PRN PRN Reason: For Phosphorus < 2.5 mg/dL Potassium Chloride (Kcl 40 Meq Premix Inj) 40 meq in 100 mls @ 25 mls/hr IV.SIG UNSCH PRN PRN Reason: For Potassium 3.3 - 3.5 mEq/L Lactulose (Lactulose Liq) 30 ml PO DAILY PRN PRN Reason: SEVERE CONSITIPATION Magnesium Oxide (Mag-Ox) 800 mg PO UNSCH PRN PRN Reason: For Magnesium 1.2 - 1.6 mg/dL Ondansetron HCl (Zofran Inj) 4 mg IV.PUSH Q6H PRN PRN Reason: NAUSEA OR VOMITING Potassium Chloride (Kcl Liq) 40 meq PO UNSCH PRN PRN Reason: Potassium level 3.3-3.5 mEq/L Potassium Chloride (Kcl Liq) 40 meq PO UNSCH PRN PRN Reason: POTASSIUM LESS THAN 3.5 Potassium Phosphate (K-Phos Original) 2,000 mg PO Q4H PRN PRN Reason: Phosphorus Less Than 2.5 mg/dL Potassium Phosphate (K-Phos Original) 2,000 mg PO UNSCH PRN PRN Reason: SEE LABEL COMMENTS Senna/Docusate Sodium (Swathi-Colace) 1 tab PO BID [facility] Sennosides (Senokot) 17.2 mg PO Q12H PRN PRN Reason: Moderate Constipation Sodium Chloride (Ns Flush) 2 ml IV.FLUSH BID [facility] Sodium Chloride (Ns Flush) 2 ml IV.FLUSH PRN PRN PRN Reason: FLUSH AFTER USING IV ACCESS <Angelina Martin - Last Filed: 05/24/18 08:35> Active Medications: Active Medications Al Hydroxide/Mg Hydroxide (Milk Of Magnanthony Liq) 30 ml PO Q12H PRN PRN Reason: Mild Constipation Albuterol (Duoneb Neb (Prn)) 1 ampul NEB Q2HR NEB PRN PRN Reason: WHEEZING Bisacodyl (Dulcolax Supp) 10 mg RECTAL DAILY PRN PRN Reason: SEVERE CONSITIPATION Chlorhexidine Gluconate (Chlorhexidine 2% Cloth) 3 pack TOPICAL DAILY@0400 [facility] Stop: 05/29/18 03:59 Last Admin: 05/24/18 04:21 Dose: 3 pack Chlorhexidine Gluconate (Chlorhexidine 2% Cloth) 3 pack TOPICAL DAILY@0400 PRN PRN Reason: Extra cloth needed Stop: 05/29/18 03:59 Pantoprazole Sodium 80 mg/ (Sodium Chloride) 100 mls @ 10 mls/hr IV.CONT CONT [facility] Last Infusion: 05/24/18 18:39 Dose: 10 mls/hr Magnesium Sulfate 4 gm/ Sodium (Chloride) 100 mls @ 50 mls/hr IV.SIG UNSCH PRN PRN Reason: For Magnesium 0.9 - 1.1 mg/dL Magnesium Sulfate 2 gm/ Sodium (Chloride) 100 mls @ 50 mls/hr IV.SIG UNSCH PRN PRN Reason: For Magnesium 1.2 - 1.6 mg/dL Sodium Chloride (Ns Inj) 1,000 mls @ 84 mls/hr IV.CONT .[id number] [facility] Last Infusion: 05/24/18 18:39 Dose: 84 mls/hr Potassium Chloride (Kcl 40 Meq Premix Inj) 40 meq in 100 mls @ 25 mls/hr IV.SIG Q2H PRN PRN Reason: For Potassium 2.8 - 3.2 mEq/L Potassium Chloride (Kcl 20 Meq Premix Inj) 20 meq in 100 mls @ 50 mls/hr IV.SIG Q2H PRN PRN Reason: For Potassium 3.3 - 3.5 mEq/L Potassium Chloride (Kcl 20 Meq Premix Inj) 20 meq in 100 mls @ 50 mls/hr IV.SIG Q2H PRN PRN Reason: For Potassium 2.8 - 3.2 mEq/L Potassium Phosphate 30 mmol/ (Sodium Chloride) 260 mls @ 42 mls/hr IV.SIG UNSCH PRN PRN Reason: SEE LABEL COMMENTS Sodium Phosphate 30 mmol/ (Sodium Chloride) 260 mls @ 42 mls/hr IV.SIG UNSCH PRN PRN Reason: For Phosphorus < 2.5 mg/dL Potassium Chloride (Kcl 40 Meq Premix Inj) 40 meq in 100 mls @ 25 mls/hr IV.SIG UNSCH PRN PRN Reason: For Potassium 3.3 - 3.5 mEq/L Lactulose (Lactulose Liq) 30 ml PO DAILY PRN PRN Reason: SEVERE CONSITIPATION Magnesium Oxide (Mag-Ox) 800 mg PO UNSCH PRN PRN Reason: For Magnesium 1.2 - 1.6 mg/dL Ondansetron HCl (Zofran Inj) 4 mg IV.PUSH Q6H PRN PRN Reason: NAUSEA OR VOMITING Last Admin: 05/24/18 18:37 Dose: 4 mg Potassium Chloride (Kcl Liq) 40 meq PO UNSCH PRN PRN Reason: Potassium level 3.3-3.5 mEq/L Potassium Chloride (Kcl Liq) 40 meq PO UNSCH PRN PRN Reason: POTASSIUM LESS THAN 3.5 Potassium Phosphate (K-Phos Original) 2,000 mg PO Q4H PRN PRN Reason: Phosphorus Less Than 2.5 mg/dL Potassium Phosphate (K-Phos Original) 2,000 mg PO UNSCH PRN PRN Reason: SEE LABEL COMMENTS Senna/Docusate Sodium (Swathi-Colace) 1 tab PO BID [facility] Last Admin: 05/24/18 13:00 Dose: Not Given Sennosides (Senokot) 17.2 mg PO Q12H PRN PRN Reason: Moderate Constipation Sodium Chloride (Ns Flush) 2 ml IV.FLUSH BID [facility] Last Admin: 05/24/18 13:01 Dose: 2 ml Sodium Chloride (Ns Flush) 2 ml IV.FLUSH PRN PRN PRN Reason: FLUSH AFTER USING IV ACCESS <Sonu Yung E - Last Filed: 05/24/18 20:21> Allergies Allergy/AdvReac Type Severity Reaction Status Date / Time cashew nut Allergy Severe THROAT Verified 05/23/18 19:29 SWELLING ciprofloxacin [From Cipro] AdvReac Intermediate Joint Pain Verified 05/23/18 19: 29 Home Medications Medication Instructions Recorded Confirmed Type calcium carbonate [Tums] 400 mg PO BID 05/23/18 05/23/18 History Exam Vital signs: Vital Signs 05/23/18 18:00 05/23/18 18:15 05/23/18 18:38 Temperature 98.1 F Pulse Rate 83 74 74 Respiratory Rate 18 Blood Pressure 103/48 L 90/60 L 116/66 Pulse Oximetry 95 96 05/23/18 18:45 05/23/18 19:41 05/23/18 21:08 Temperature 97.9 F Pulse Rate 87 80 Respiratory Rate 18 24 Blood Pressure 122/64 140/65 Pulse Oximetry 94 L 98 05/23/18 21:44 05/23/18 22:00 05/23/18 22:28 Temperature 98.4 F Pulse Rate 84 85 83 Respiratory Rate 30 H 22 22 Blood Pressure 103/60 103/65 101/64 Pulse Oximetry 96 97 96 05/23/18 22:58 05/23/18 23:00 05/23/18 23:28 Temperature Pulse Rate 83 110 H 80 Respiratory Rate 33 H 37 H 25 H Blood Pressure 104/73 99/58 L Pulse Oximetry 98 100 98 05/24/18 00:00 05/24/18 00:03 05/24/18 01:00 Temperature 98.0 F Pulse Rate 78 83 82 Respiratory Rate 31 H 19 19 Blood Pressure 102/56 L 102/56 L Pulse Oximetry 98 97 97 05/24/18 01:03 05/24/18 02:00 05/24/18 02:03 Temperature Pulse Rate 86 83 82 Respiratory Rate 25 H 18 23 Blood Pressure 100/58 L 103/58 L Pulse Oximetry 99 97 99 05/24/18 03:00 05/24/18 03:03 05/24/18 04:00 Temperature 98.0 F Pulse Rate 84 81 86 Respiratory Rate 23 18 20 Blood Pressure 103/58 L 110/59 L Pulse Oximetry 98 99 98 05/24/18 04:07 05/24/18 04:17 05/24/18 05:00 Temperature Pulse Rate 98 H 83 81 Respiratory Rate 35 H 20 18 Blood Pressure 110/59 L Pulse Oximetry 95 94 L 05/24/18 05:03 05/24/18 06:00 05/24/18 06:03 Temperature Pulse Rate 81 80 80 Respiratory Rate 20 14 14 Blood Pressure 98/51 L 93/51 L Pulse Oximetry 95 95 96 Intake & Output 05/23/18 05/24/18 05/24/18 18:59 06:59 18:59 Intake Total 1100.0 / 1100.0 Output Total 1100 / 1100 Balance 0 / 0 Weight 90.718 kg 94.5 kg Intake: IV 1100.0 / 1100.0 Protonix Inj 80 MG In NS Inj 100.0 / 100.0 100 ML @ 10 mls/hr IV.CONT CONT [facility] Rx#:[id number] NS Inj 1,000 ML @ Wide Open IV. 1000 / 1000 SIG BOLUS ONE Rx#:[id number] Output: Urine 1100 / 1100 Other: Date of Last Bowel Movement 05/24/18 # Bowel Movements 1 Weight On Admission 94.5 kg <Angelina Martin - Last Filed: 05/24/18 08:35> Vital signs: Vital Signs 05/23/18 21:08 05/23/18 21:44 05/23/18 22:00 Temperature 98.4 F Pulse Rate 80 84 85 Respiratory Rate 24 30 H 22 Blood Pressure 103/60 103/65 Pulse Oximetry 98 96 97 05/23/18 22:28 05/23/18 22:58 05/23/18 23:00 Temperature Pulse Rate 83 83 110 H Respiratory Rate 22 33 H 37 H Blood Pressure 101/64 104/73 Pulse Oximetry 96 98 100 05/23/18 23:28 05/24/18 00:00 05/24/18 00:03 Temperature 98.0 F Pulse Rate 80 78 83 Respiratory Rate 25 H 31 H 19 Blood Pressure 99/58 L 102/56 L 102/56 L Pulse Oximetry 98 98 97 05/24/18 01:00 05/24/18 01:03 05/24/18 02:00 Temperature Pulse Rate 82 86 83 Respiratory Rate 19 25 H 18 Blood Pressure 100/58 L Pulse Oximetry 97 99 97 05/24/18 02:03 05/24/18 03:00 05/24/18 03:03 Temperature Pulse Rate 82 84 81 Respiratory Rate 23 23 18 Blood Pressure 103/58 L 103/58 L Pulse Oximetry 99 98 99 05/24/18 04:00 05/24/18 04:07 05/24/18 04:17 Temperature 98.0 F Pulse Rate 86 98 H 83 Respiratory Rate 20 35 H 20 Blood Pressure 110/59 L 110/59 L Pulse Oximetry 98 95 05/24/18 05:00 05/24/18 05:03 05/24/18 06:00 Temperature Pulse Rate 81 81 80 Respiratory Rate 18 20 14 Blood Pressure 98/51 L Pulse Oximetry 94 L 95 95 05/24/18 06:03 05/24/18 07:00 05/24/18 08:00 Temperature Pulse Rate 80 81 80 Respiratory Rate 14 17 15 Blood Pressure 93/51 L 114/60 106/61 Pulse Oximetry 96 99 98 05/24/18 09:15 05/24/18 10:00 05/24/18 11:00 Temperature Pulse Rate 83 73 76 Respiratory Rate 17 17 17 Blood Pressure 101/56 L 106/58 L 103/59 L Pulse Oximetry 100 98 05/24/18 12:00 05/24/18 13:00 05/24/18 14:00 Temperature 98.3 F Pulse Rate 82 89 79 Respiratory Rate 18 18 18 Blood Pressure 105/58 L 98/64 L 109/58 L Pulse Oximetry 99 100 96 05/24/18 15:00 05/24/18 16:00 05/24/18 17:00 Temperature Pulse Rate 72 73 85 Respiratory Rate 14 17 18 Blood Pressure 112/57 L 104/59 L 128/66 Pulse Oximetry 100 98 05/24/18 18:00 05/24/18 19:03 Temperature 98.8 F Pulse Rate 91 H 103 H Respiratory Rate 18 18 Blood Pressure 126/62 131/64 Pulse Oximetry Intake & Output 05/24/18 05/24/18 05/25/18 06:59 18:59 06:59 Intake Total 1100.0 / 1100.0 1662 / 1662 Output Total 1100 / 1100 Balance 0 / 0 1662 / 1662 Weight 94.5 kg Intake: IV 1100.0 / 1100.0 1662 / 1662 Protonix Inj 80 MG In NS Inj 100.0 / 100.0 122 / 122 100 ML @ 10 mls/hr IV.CONT CONT [facility] Rx#:[id number] NS Inj 1,000 ML @ 84 mls/hr IV. 1540 / 1540 CONT .[id number] [facility] Rx#:[id number] NS Inj 1,000 ML @ Wide Open IV. 1000 / 1000 SIG BOLUS ONE Rx#:[id number] Output: Urine 1100 / 1100 Other: # Voids 4 Date of Last Bowel Movement 02/24/19 02/24/19 # Bowel Movements 1 3 1 Weight On Admission 94.5 kg <DilshadSonu E - Last Filed: 05/24/18 20:21> Results - Labs CBC & Chem 7: 05/24/18 03:42 05/24/18 03:42 Labs: Laboratory Results - last 24 hr 05/23/18 05/23/18 05/23/18 18:02 18:25 18:25 CBC w Diff Auto diff final WBC 13.8 H RBC 3.56 L Hgb 10.5 L Hct 31.1 L MCV 87.4 MCH 29.6 MCHC 33.9 RDW 13.1 Plt Count 294 MPV 8.4 Neut % (Auto) 57.8 Lymph % (Auto) 32.7 [place] % (Auto) 6.2 Eos % (Auto) 1.7 Baso % (Auto) 1.6 Neut # (Auto) 8.0 H Lymph # (Auto) 4.5 [place] # (Auto) 0.9 Eos # (Auto) 0.2 Baso # (Auto) 0.2 WBC Differential . Differential Comment . PT 10.7 INR 1.1 APTT 21.0 L Sodium Potassium Chloride Carbon Dioxide Anion Gap BUN Creatinine Estimated GFR POC Glucose 124 Random Glucose Lactic Acid Calcium Phosphorus Magnesium Total Bilirubin AST ALT Alkaline Phosphatase Total Creatine Kinase Troponin I Total Protein Albumin Lipase Urine Color Urine Clarity Urine pH Ur Specific [place] Urine Protein Urine Glucose (UA) Urine Ketones Urine Occult Blood Urine Nitrate Urine Bilirubin Urine Urobilinogen Ur Leukocyte Esterase Urine RBC Urine WBC Micro UA Comment Ur Microscopic Review Urine Culture Comments Nasal Screen MRSA (PCR) Blood Type Antibody Screen MTS Gel Crossmatch Bld Prod Order Comment 05/23/18 05/23/18 05/23/18 18:25 18:25 18:25 CBC w Diff WBC RBC Hgb Hct MCV MCH MCHC RDW Plt Count MPV Neut % (Auto) Lymph % (Auto) [place] % (Auto) Eos % (Auto) Baso % (Auto) Neut # (Auto) Lymph # (Auto) [place] # (Auto) Eos # (Auto) Baso # (Auto) WBC Differential Differential Comment PT INR APTT Sodium 138 Potassium 3.8 Chloride 105 Carbon Dioxide 22.8 Anion Gap 10 BUN 39 H Creatinine 1.40 H Estimated GFR 52 L POC Glucose Random Glucose 128 H Lactic Acid 2.9 H Calcium 8.5 Phosphorus Magnesium 2.1 Total Bilirubin 0.3 AST 14 L ALT 22 Alkaline Phosphatase 43 L Total Creatine Kinase 67 Troponin I Less than 0.02 L Total Protein 6.4 Albumin 3.3 L Lipase 105 Urine Color Urine Clarity Urine pH Ur Specific [place] Urine Protein Urine Glucose (UA) Urine Ketones Urine Occult Blood Urine Nitrate Urine Bilirubin Urine Urobilinogen Ur Leukocyte Esterase Urine RBC Urine WBC Micro UA Comment Ur Microscopic Review Urine Culture Comments Nasal Screen MRSA (PCR) Blood Type ND Antibody Screen ND MTS Gel Crossmatch See Detail Bld Prod Order Comment 05/23/18 05/23/18 05/23/18 21:40 21:40 21:51 CBC w Diff WBC RBC Hgb Hct MCV MCH MCHC RDW Plt Count MPV Neut % (Auto) Lymph % (Auto) [place] % (Auto) Eos % (Auto) Baso % (Auto) Neut # (Auto) Lymph # (Auto) [place] # (Auto) Eos # (Auto) Baso # (Auto) WBC Differential Differential Comment PT INR APTT Sodium Potassium Chloride Carbon Dioxide Anion Gap BUN Creatinine Estimated GFR POC Glucose Random Glucose Lactic Acid 1.6 Calcium Phosphorus Magnesium Total Bilirubin AST ALT Alkaline Phosphatase Total Creatine Kinase Troponin I Total Protein Albumin Lipase Urine Color Straw Urine Clarity Clear Urine pH 5.0 Ur Specific [place] 1.036 H Urine Protein Negative Urine Glucose (UA) Negative Urine Ketones Negative Urine Occult Blood Negative Urine Nitrate Negative Urine Bilirubin Negative Urine Urobilinogen Less than 2 Ur Leukocyte Esterase Trace H Urine RBC 1 Urine WBC Less than 1 Micro UA Comment Culture not ind Ur Microscopic Review Not Reportable Urine Culture Comments Culture not ind Nasal Screen MRSA (PCR) Not detected Blood Type Antibody Screen MTS Gel Crossmatch Bld Prod Order Comment 05/23/18 05/24/18 05/24/18 21:51 03:42 03:42 CBC w Diff WBC 12.3 H RBC 2.85 L Hgb 8.6 L Hct 25.5 L MCV 89.8 MCH 30.3 MCHC 33.8 RDW 14.1 Plt Count 240 MPV 8.4 Neut % (Auto) 76.3 H Lymph % (Auto) 16.1 [place] % (Auto) 6.7 Eos % (Auto) 0.3 Baso % (Auto) 0.6 Neut # (Auto) 9.4 H Lymph # (Auto) 2.0 [place] # (Auto) 0.8 Eos # (Auto) 0.0 Baso # (Auto) 0.1 WBC Differential . Differential Comment Auto diff final PT 10.8 INR 1.1 APTT Sodium Potassium Chloride Carbon Dioxide Anion Gap BUN Creatinine Estimated GFR POC Glucose Random Glucose Lactic Acid Calcium Phosphorus Magnesium Total Bilirubin AST ALT Alkaline Phosphatase Total Creatine Kinase Troponin I Less than 0.02 L Total Protein Albumin Lipase Urine Color Urine Clarity Urine pH Ur Specific [place] Urine Protein Urine Glucose (UA) Urine Ketones Urine Occult Blood Urine Nitrate Urine Bilirubin Urine Urobilinogen Ur Leukocyte Esterase Urine RBC Urine WBC Micro UA Comment Ur Microscopic Review Urine Culture Comments Nasal Screen MRSA (PCR) Blood Type Antibody Screen MTS Gel Crossmatch Bld Prod Order Comment 05/24/18 05/24/18 03:42 07:18 CBC w Diff WBC RBC Hgb Hct MCV MCH MCHC RDW Plt Count MPV Neut % (Auto) Lymph % (Auto) [place] % (Auto) Eos % (Auto) Baso % (Auto) Neut # (Auto) Lymph # (Auto) [place] # (Auto) Eos # (Auto) Baso # (Auto) WBC Differential Differential Comment PT INR APTT Sodium 141 Potassium 3.8 Chloride 108 H Carbon Dioxide 24.7 Anion Gap 8 BUN 32 H Creatinine 1.10 Estimated GFR 69 L POC Glucose Random Glucose 104 Lactic Acid Calcium 7.7 L D Phosphorus 2.6 Magnesium 2.0 Total Bilirubin 0.4 AST 12 L ALT 21 Alkaline Phosphatase 38 L Total Creatine Kinase Troponin I Total Protein 6.0 L Albumin 3.2 L Lipase Urine Color Urine Clarity Urine pH Ur Specific [place] Urine Protein Urine Glucose (UA) Urine Ketones Urine Occult Blood Urine Nitrate Urine Bilirubin Urine Urobilinogen Ur Leukocyte Esterase Urine RBC Urine WBC Micro UA Comment Ur Microscopic Review Urine Culture Comments Nasal Screen MRSA (PCR) Blood Type O Positive Antibody Screen Negative MTS Gel Crossmatch Bld Prod Order Comment - Imaging Impressions Head CT 05/23/18 18:00 CONCLUSION: 1. 7 mm hyperdensity in one right high parietal occipital gyrus characteristic of acute hemorrhage. 2. No evidence of mass effect or cerebral edema. 3. Recommend follow-up CT scans. . . Abdomen/Pelvis CT 05/23/18 18:08 CONCLUSION: 1. Negative CT abdomen/pelvis with contrast. <Angelina Martin - Last Filed: 05/24/18 08:35> - Labs CBC & Chem 7: 05/24/18 13:57 05/24/18 03:42 Labs: Laboratory Results - last 24 hr 05/23/18 05/23/18 05/23/18 18:25 21:40 21:40 WBC RBC Hgb Hct MCV MCH MCHC RDW Plt Count MPV Neut % (Auto) Lymph % (Auto) [place] % (Auto) Eos % (Auto) Baso % (Auto) Neut # (Auto) Lymph # (Auto) [place] # (Auto) Eos # (Auto) Baso # (Auto) WBC Differential Differential Comment PT INR Sodium Potassium Chloride Carbon Dioxide Anion Gap BUN Creatinine Estimated GFR Random Glucose Lactic Acid Calcium Phosphorus Magnesium Total Bilirubin AST ALT Alkaline Phosphatase Troponin I Total Protein Albumin Urine Color Straw Urine Clarity Clear Urine pH 5.0 Ur Specific [place] 1.036 H Urine Protein Negative Urine Glucose (UA) Negative Urine Ketones Negative Urine Occult Blood Negative Urine Nitrate Negative Urine Bilirubin Negative Urine Urobilinogen Less than 2 Ur Leukocyte Esterase Trace H Urine RBC 1 Urine WBC Less than 1 Micro UA Comment Culture not ind Ur Microscopic Review Not Reportable Urine Culture Comments Culture not ind Nasal Screen MRSA (PCR) Not detected Blood Type ND Antibody Screen ND MTS Gel Crossmatch See Detail Bld Prod Order Comment 05/23/18 05/23/18 05/24/18 21:51 21:51 03:42 WBC 12.3 H RBC 2.85 L Hgb 8.6 L Hct 25.5 L MCV 89.8 MCH 30.3 MCHC 33.8 RDW 14.1 Plt Count 240 MPV 8.4 Neut % (Auto) 76.3 H Lymph % (Auto) 16.1 [place] % (Auto) 6.7 Eos % (Auto) 0.3 Baso % (Auto) 0.6 Neut # (Auto) 9.4 H Lymph # (Auto) 2.0 [place] # (Auto) 0.8 Eos # (Auto) 0.0 Baso # (Auto) 0.1 WBC Differential . Differential Comment Auto diff final PT INR Sodium Potassium Chloride Carbon Dioxide Anion Gap BUN Creatinine Estimated GFR Random Glucose Lactic Acid 1.6 Calcium Phosphorus Magnesium Total Bilirubin AST ALT Alkaline Phosphatase Troponin I Less than 0.02 L Total Protein Albumin Urine Color Urine Clarity Urine pH Ur Specific [place] Urine Protein Urine Glucose (UA) Urine Ketones Urine Occult Blood Urine Nitrate Urine Bilirubin Urine Urobilinogen Ur Leukocyte Esterase Urine RBC Urine WBC Micro UA Comment Ur Microscopic Review Urine Culture Comments Nasal Screen MRSA (PCR) Blood Type Antibody Screen MTS Gel Crossmatch Bld Prod Order Comment 05/24/18 05/24/18 05/24/18 03:42 03:42 07:18 WBC RBC Hgb Hct MCV MCH MCHC RDW Plt Count MPV Neut % (Auto) Lymph % (Auto) [place] % (Auto) Eos % (Auto) Baso % (Auto) Neut # (Auto) Lymph # (Auto) [place] # (Auto) Eos # (Auto) Baso # (Auto) WBC Differential Differential Comment PT 10.8 INR 1.1 Sodium 141 Potassium 3.8 Chloride 108 H Carbon Dioxide 24.7 Anion Gap 8 BUN 32 H Creatinine 1.10 Estimated GFR 69 L Random Glucose 104 Lactic Acid Calcium 7.7 L D Phosphorus 2.6 Magnesium 2.0 Total Bilirubin 0.4 AST 12 L ALT 21 Alkaline Phosphatase 38 L Troponin I Total Protein 6.0 L Albumin 3.2 L Urine Color Urine Clarity Urine pH Ur Specific [place] Urine Protein Urine Glucose (UA) Urine Ketones Urine Occult Blood Urine Nitrate Urine Bilirubin Urine Urobilinogen Ur Leukocyte Esterase Urine RBC Urine WBC Micro UA Comment Ur Microscopic Review Urine Culture Comments Nasal Screen MRSA (PCR) Blood Type O Positive Antibody Screen Negative MTS Gel Crossmatch Bld Prod Order Comment 05/24/18 13:57 WBC RBC Hgb 9.1 L Hct 27.0 L MCV MCH MCHC RDW Plt Count MPV Neut % (Auto) Lymph % (Auto) [place] % (Auto) Eos % (Auto) Baso % (Auto) Neut # (Auto) Lymph # (Auto) [place] # (Auto) Eos # (Auto) Baso # (Auto) WBC Differential Differential Comment PT INR Sodium Potassium Chloride Carbon Dioxide Anion Gap BUN Creatinine Estimated GFR Random Glucose Lactic Acid Calcium Phosphorus Magnesium Total Bilirubin AST ALT Alkaline Phosphatase Troponin I Total Protein Albumin Urine Color Urine Clarity Urine pH Ur Specific [place] Urine Protein Urine Glucose (UA) Urine Ketones Urine Occult Blood Urine Nitrate Urine Bilirubin Urine Urobilinogen Ur Leukocyte Esterase Urine RBC Urine WBC Micro UA Comment Ur Microscopic Review Urine Culture Comments Nasal Screen MRSA (PCR) Blood Type Antibody Screen MTS Gel Crossmatch Bld Prod Order Comment - Imaging Impressions Cervical Spine MRI 05/24/18 00:00 CONCLUSION: 1. Subtle increase in signal within the cord at C5-C6 seen best on the axial images. This is nonspecific. 2. Spinal stenosis doesn't appear significant enough to cause this 3. There is no increased signal within the interspinous ligaments to suggest ligamentous instability. 4. Controlled flexion-extension films would be of benefit to exclude acute instability. Cervical Spine CT 05/24/18 08:03 CONCLUSION: 1. Degenerative changes at C5-C6 and C6-C7 without fracture. Cervical Spine X-Ray 05/24/18 10:46 CONCLUSION: Degenerative changes at C5-C6 and C6-C7. No abnormal motion. <Sonu Yung E - Last Filed: 05/24/18 20:21> Assessment and Plan (1) Acute GI bleeding Status: Acute Code(s): K92.2 - Gastrointestinal hemorrhage, unspecified - Plan 1. GI bleeding. Melena, coffee-ground emesis x1, dark red stool with clots x1 2. Left lower quadrant pain, history of recurrent diverticulitis. Recent CT with no evidence of active diverticulitis. 3. Acute GI blood loss anemia. 4. History of colon polyps, last colonoscopy 5 years ago. Plan: Monitor H&H, transfuse as needed. Pantoprazole drip. Hold all anticoagulants, antiplatelets. Clear liquid diet. Colonoscopy and EGD tomorrow. The patient was seen and examined by myself and Dr. Yung in this note is written on his behalf. - Attending Attestation <Angelina Martin - Last Filed: 05/24/18 08:35> (1) Acute GI bleeding Status: Acute Code(s): K92.2 - Gastrointestinal hemorrhage, unspecified - Attending Attestation Patient seen and examined Agree with above Continue with current supportive care Monitor labs Plan for an EGD and a colonoscopy tomorrow <Sonu Yung E - Last Filed: 05/24/18 20:21>
--- NOTE | 2018-05-24 09:19 | MR ---
EXAM DATE: 05/24/2018 9:11 AM EST AGE/SEX: 57 years / Male INDICATIONS: . Bilateral upper extremity numbness s/p fall with hit to head. CLINICAL DATA: This is the patient's initial encounter. Patient reports that signs and symptoms have been present for 2 days and indicates a pain score of 0/10. MEDICAL/SURGICAL HISTORY: None. None. COMPARISON: [facility] [place], CT CERVICAL SPINE W/O CONTRAST, 05/24/2018. . TECHNIQUE: Multiplanar, multisequence MRI examination of the cervical spine was performed without co ntrast. FINDINGS: Vertebrae: Normal vertebral body height. Homogeneous marrow signal. Alignment: Normal. Cord: Normal configuration and signal. Post Fossa: The cerebellar tonsils are normal in position. C2-C3: The thecal sac has a normal configuration. There is no evidence of disc herniation or spinal canal stenosis. The neural foramina are patent bilaterally. C3-C4: The thecal sac has a normal configuration. There is no evidence of disc herniation or spinal canal stenosis. The neural foramina are patent bilaterally. C4-C5: The thecal sac has a normal configuration. There is no evidence of disc herniation or spinal canal stenosis. The neural foramina are patent bilaterally. C5-C6: Mild interspace ridging without significant spinal stenosis. Minimal subtle increased signal within the cord at this level. Interspinous ligament signal appears normal C6-C7: Mild interspace ridging without significant cord impingement. Signal intensity cord is normal . C7-T1: No epidural impressions seen. CONCLUSION: 1. Subtle increase in signal within the cord at C5-C6 seen best on the axial images. This is nonspec ific. 2. Spinal stenosis doesn't appear significant enough to cause this 3. There is no increased signal within the interspinous ligaments to suggest ligamentous instability . 4. Controlled flexion-extension films would be of benefit to exclude acute instability. Electronically signed by: Surendra Webb MD Board Certified Radiologist 05/24/2018 9:18 AM EST
--- NOTE | 2018-05-24 09:35 | CT ---
EXAM DATE: 05/24/2018 9:30 AM EST AGE/SEX: 57 years / Male INDICATIONS: Fall, Neck Pain CLINICAL DATA: This is the patient's initial encounter. Patient reports that signs and symptoms have been present for 1 day and indicates a pain score of 0/10. MEDICAL/SURGICAL HISTORY: Diverticulitis. Gastroesophageal reflux disease. . Back Surgery RADIATION DOSE: 21.69 CTDI (mGy) COMPARISON: . TECHNIQUE: Contiguous axial images were obtained using helical multirow detector technique. The vol umetric data was post-processed with multiplanar reconstruction in oblique axial, sagittal, and coron al planes. Using automated exposure control and adjustment of the mA and/or kV according to patient s ize, radiation dose was kept as low as reasonably achievable to obtain optimal diagnostic quality elena ges. DICOM format image data is available electronically for review and comparison. FINDINGS: Vertebrae: Normal vertebral body height. Alignment: Normal. No subluxation. C2-3: The bony spinal canal is normal in size. No evidence of disc bulge or herniation. The neural foramina are bilaterally patent. C3-4: The bony spinal canal is normal in size. No evidence of disc bulge or herniation. The neural foramina are bilaterally patent. C4-5: The bony spinal canal is normal in size. No evidence of disc bulge or herniation. The neural foramina are bilaterally patent. C5-6: Mild interspace ridging present with minimal right-sided neural foraminal encroachment C6-7: Mild uncinate ridging with minimal bilateral neural foraminal encroachment and mild spinal ken nosis C7-T1: The bony spinal canal is normal in size. No evidence of disc bulge or herniation. The neura l foramina are bilaterally patent. CONCLUSION: 1. Degenerative changes at C5-C6 and C6-C7 without fracture. Electronically signed by: Surendra Webb MD Board Certified Radiologist 05/24/2018 9:34 AM EST
--- NOTE | 2018-05-24 09:46 | ECG ---
Date Performed: 05/23/2018 Time Performed: 23:37:32 PTAGE: 57 years EKG: Sinus rhythm . Normal ECG PREVIOUS TRACING : 05/23/2018 18.21 Since the previous tracing, no significant change noted DOCTOR: Irma Verdin Interpretating Date/Time 05/24/2018 09:45:02
--- NOTE | 2018-05-24 11:48 | MB ---
cc: Pancho Awan MD DATE: 05/24/2018 TIME: 8:15 a.m. Report of an initial comprehensive inpatient surgical intensive care unit neurosurgical consultation. The patient was interviewed and examined, the documentation, laboratory evaluation, the imaging reviewed. CHIEF COMPLAINT: Syncope and a fall and a closed head injury. HISTORY OF PRESENT ILLNESS: This is a 57-year-old apparently right-handed white male who was admitted after a syncopal episode yesterday and he fell striking his head. He had apparent brief loss of consciousness. [place] coma scale has remained 15. A CT scan of the head without contrast revealed a very small area of hemorrhagic brain contusion or subarachnoid hemorrhage over the right posterior frontal cortex located in a parasagittal location or over the convexity. There was no mass effect and no shift. There was no skull fracture nor hydrocephalus nor pneumocephalus. He initially had some vomiting and a mild headache, but this now has resolved. He has been stable overnight. Since the injury; however, he has complained of some mild neck pain and complains of some numbness and weakness in his hands. He has not undergone any imaging of the cervical spine. PAST MEDICAL HISTORY: Remarkable for history of diverticulitis, recurrent. PAST SURGICAL HISTORY: Remarkable for history of low back surgery or a lumbar spine surgery and right knee arthroscopy. MEDICATIONS: I refer you to the medical record as they are listed. ALLERGIES: HE HAS ALLERGIES TO CIPROFLOXACIN. SOCIAL HISTORY: He denies a history of illicit drug use, ethanol abuse or cigarette smoking. FAMILY HISTORY: Not contributory. REVIEW OF SYSTEMS: Denies any weight change. He denies any fever, chills or night sweats. He denies any real headaches. Denies any change in his vision or hearing or thinking or memory or speech or swallowing or chest pain or shortness of breath or abdominal pain except when he has an exacerbation of diverticulitis. He has had some abdominal pain lately. He denies any fecal or urinary incontinence. He has noticed some black stools. He denies any gait imbalance. He denies any rash, itching, or easy bruising. He denies any anxiety or depression. He denies any swelling in his lower extremities. NEUROLOGICAL EXAMINATION: VITAL SIGNS: His temperature is 98, his heart rate is 73, his blood pressure is 106/58, his respiratory rate is 17, and his SpO2 is 100% on room air. NEUROLOGIC: Mental status testing finds the patient to be awake and alert. He is oriented x3. Cognitive function is grossly intact. His speech is fluent. Cranial nerve testing 2-12 are grossly intact. Visual simeon are full to confrontation. Extraocular movements are full without diplopia or nystagmus. Funduscopic examination was deferred due to small pupils. Motor examination found both to be within normal limits. Tone was increased in all 4 extremities. Power testing was 5+/5+ throughout with 4.5/5+ weakness of the finger extensors, interosseous bilaterally, as well as the hip flexors bilaterally. Otherwise, it was 5+/5+ throughout. Sensory examination was intact to light touch and position throughout with some diminished to light touch distally in his hands and fingers bilaterally. Deep tendon reflexes appeared to be 3-4+ and symmetric with bilateral inverted radial reflexes, as well as 1 or 2 beats of clonus noted bilaterally in both lower extremities. Cerebellar testing found some clumsiness of both hands. There was no truncal nor appendicular ataxia noted. Gait, Romberg and tandem were not tested. His head was normocephalic. External auditory canals were clear. There was no dinero sign, no raccoon eyes. No mastoid tenderness. There was no blood within the external auditory canals. No sign of CSF otorrhea or rhinorrhea. Cervical spine evaluation revealed mild limited range of motion with some pain to palpation over the mid to lower cervical spine. There was a negative Lhermitte sign and a negative compression test. Pulses were 4+ present and symmetrical throughout. IMPRESSION: My impression is the patient has suffered a syncopal episode resulting in a very mild closed blunt head injury and a traumatic brain injury with a small hemorrhagic brain contusion or possibly subarachnoid hemorrhage. His [place] coma scale remains 15. He may have suffered an occult cervical spine injury since the patient appears to present here with some neck pain and findings consistent with a cervical myelopathy. RECOMMENDATION AND PLAN: Include a conservative neurosurgical approach for his head injury. It probably is not needed that he undergo even any followup imaging of his head unless he is symptomatic or has headaches. In regard to his cervical spine, he needs a complete radiographic workup including a CT scan of the cervical spine and an MRI scan of the cervical spine. Depending results of this, as well as his clinical course, will determine the appropriate further diagnostic and therapeutic approach. Neurosurgery will follow. Thank you for allowing me to participate in the care of this patient. MD BERNICE Hayes/reyes , 10:36 AM , 10:48 AM
--- NOTE | 2018-05-24 11:52 | XR ---
EXAM DATE: 05/24/2018 11:37 AM EST AGE/SEX: 57 years / Male INDICATIONS: Neck pain with dizziness CLINICAL DATA: This is the patient's initial encounter. Patient reports that signs and symptoms have been present for 2 days and indicates a pain score of 3/10. MEDICAL/SURGICAL HISTORY: None. None. COMPARISON: No prior exams available for comparison. FINDINGS: Flexion and extension views of the spine were performed. The alignment of the vertebral bodies is ma intained in flexion and extension and there is no evidence of subluxation. The prevertebral soft tis sues are normal in thickness. CONCLUSION: Degenerative changes at C5-C6 and C6-C7. No abnormal motion. Electronically signed by: Surendra Webb MD Board Certified Radiologist 05/24/2018 11:51 AM EST
[2018-05-24] MEDS: Sod Chloride 0.9% Inj 1,000 ML IV.CONT SCH ×2 (12:59→23:54)
[2018-05-24] MEDS: Senna/Docusate Sodium 8.6/50 MG Tablet PO SCH ×2 (13:00→23:53)
[2018-05-24 14:21] LABS: Hemoglobin 9.1 gm/dL (13.0-17.0)
[2018-05-24] MEDS ORDERED: PEG 3350/E-Lyte Soln 4000 ML Bottle PO ONE (16:00)
[2018-05-25] MEDS ORDERED: Magnesium Citrate Liq 300 ML Bottle PO ONE (06:00)
[2018-05-25] MEDS: Chlorhexidine Gluconate 2% 1 Pack (2 Cloths) TOPICAL SCH (06:41)
--- NOTE | 2018-05-25 07:37 | P.PNCC ---
Subjective Subjective Remarks/Hospital Course: 57-year-old male presenting with syncope. The patient states that he has a history of diverticulitis, and over the past week has been having "sharp/ aching " LLQ abdominal pain which radiates to the midline, constant, worse with movement or palpation and not improved by anything, associated with nausea and melena. He says that earlier today, he had nausea and an episode of coffee ground emesis. He says that he tried to stand up to go to the bathroom when he began to feel "lightheaded like I was going to pass out" and the next thing he remembers is waking up on the floor. He initially presented to the emergency department at [place], where he was found to have (+) stool guaiac and small ICH. He denies use of anticoagulants/ antiplatelets but admits to using at least 800 mg of Motrin per day for the past several weeks for chronic low back pain. The patient thinks he may have seen Dr. Hunter of GI in the past but isn't sure; he's had a colonoscopy previously but is unsure if he's had an endoscopy. No known history of PUD. 05/24: No more hematemesis overnight. Hemodynamically stable. Awaiting for GI evaluation 05/25: Hemodynamically stable, no acute events overnight, plan for EGD today. MRI done and rule out underlying mass or vascular pathology of the small ICH. Neurologically intact. Objective Vital Signs / I&O: Vital Signs 05/24/18 08:00 05/24/18 09:15 05/24/18 10:00 Temperature Pulse Rate 80 83 73 Respiratory Rate 15 17 17 Blood Pressure 106/61 101/56 L 106/58 L Pulse Oximetry 98 100 05/24/18 11:00 05/24/18 12:00 05/24/18 13:00 Temperature 98.3 F Pulse Rate 76 82 89 Respiratory Rate 17 18 18 Blood Pressure 103/59 L 105/58 L 98/64 L Pulse Oximetry 98 99 100 05/24/18 14:00 05/24/18 15:00 05/24/18 16:00 Temperature Pulse Rate 79 72 73 Respiratory Rate 18 14 17 Blood Pressure 109/58 L 112/57 L 104/59 L Pulse Oximetry 96 100 98 05/24/18 17:00 05/24/18 18:00 05/24/18 19:03 Temperature 98.8 F Pulse Rate 85 91 H 103 H Respiratory Rate 18 18 18 Blood Pressure 128/66 126/62 131/64 Pulse Oximetry 05/24/18 19:05 05/24/18 20:00 05/24/18 22:00 Temperature Pulse Rate 98 H 84 88 Respiratory Rate 19 Blood Pressure Pulse Oximetry 05/24/18 23:43 05/25/18 00:00 05/25/18 01:00 Temperature 99.2 F 99.2 F Pulse Rate 89 83 80 Respiratory Rate 17 14 13 Blood Pressure 102/53 L 102/53 L Pulse Oximetry 95 93 L 96 05/25/18 01:01 05/25/18 01:02 05/25/18 01:03 Temperature Pulse Rate 81 81 78 Respiratory Rate 14 13 13 Blood Pressure 86/51 L 86/51 L 82/50 L Pulse Oximetry 96 96 97 05/25/18 01:04 05/25/18 01:34 05/25/18 02:00 Temperature 99.2 F Pulse Rate 85 86 72 Respiratory Rate 21 30 H Blood Pressure 102/54 L 94/65 L Pulse Oximetry 99 98 100 05/25/18 03:58 05/25/18 03:59 05/25/18 04:00 Temperature Pulse Rate 75 72 Respiratory Rate 11 L 11 L Blood Pressure 102/56 L Pulse Oximetry 98 97 05/25/18 05:00 05/25/18 06:00 Temperature Pulse Rate 75 60 Respiratory Rate 13 Blood Pressure 94/64 L Pulse Oximetry 100 Intake & Output 05/24/18 05/25/18 05/25/18 18:59 06:59 18:59 Intake Total 1662 / 1662 578 / 578 Balance 1662 / 1662 578 / 578 Weight 90 kg Intake: IV 1662 / 1662 78 / 78 Protonix Inj 80 MG In NS Inj 122 / 122 78 / 78 100 ML @ 10 mls/hr IV.CONT CONT [facility] Rx#:[id number] NS Inj 1,000 ML @ 84 mls/hr IV. 1540 / 1540 CONT .[id number] [facility] Rx#:[id number] Oral 500 / 500 Other: # Voids 4 Date of Last Bowel Movement 05/24/18 05/24/18 # Bowel Movements 3 1 Result Diagrams: 05/24/18 13:57 05/24/18 03:42 Objective Remarks: GEN: Well-appearing, no acute distress HEENT: No obvious external signs of head trauma, PERRL, no facial or intraoral trauma NECK: Trachea midline CARDIO: Regular rate and rhythm, no murmurs PULM: Clear to auscultation bilaterally ABD/GI: Soft, non-distended, mild LLQ tenderness, no guarding or rebound EXT/MSK: No peripheral edema SKIN: Warm and well-perfused, no rashes or lesions NEURO: GCS 15, speech clear and fluent, no slurred speech or aphasia, moves all extremities PSYCH: Appropriate affect Assessment and Plan - Assessment and Plan Plan: 57yM presenting with GI bleed, syncope, and small intraparenchymal hemorrhage s/ p unwitnessed fall at home NEURO: Syncopal episode Intracranial hemorrhage -GCS 15, neurologically intact on exam -Not on anticoagulation -Neurosurgery consulted appreciated -Patient's ICH is very small, likely does not need seizure prophylaxis or repeat imaging unless his exam changes CARDIO: Syncope -Likely due to dehydration/ GI bleed -Cardiac monitoring -No history of chest pain -Initial troponin negative; check 2nd trop still negative, will stop trending PULM: -Incentive spirometer while awake F/E/N: -NPO for now -Maintenance IV fluids -ICU electrolyte protocol HEME, GI: GI bleed, likely upper -Protonix bolus/ gtt started in ED -NPO -Check AM H/H -No indication for transfusion at this point -Hold all anticoagulants/ antiplatelets for now -GI consult, endoscopic evaluation today PROPHY: -SCDs only, chemical DVT prophylaxis contraindicated in the setting of ICH and GI bleed -Protonix gtt Level 3
[2018-05-25 09:19] LABS: Baso # (Auto) 0.1 th/mm3 (0.0-0.2); Baso % (Auto) 0.6 % (0.0-2.0); Eos # (Auto) 0.1 th/mm3 (0.0-0.4); Eos % (Auto) 1.7 % (0.0-4.0); Hematocrit 23.1 % (39.0-51.0); Lymph # (Auto) 2.4 th/mm3 (1.0-4.8); Lymph % (Auto) 27.2 % (9.0-44.0); Mean Corpuscular HGB Conc 34.5 % (32.0-36.0); Mean Corpuscular Hemoglobin 31.1 pg (27.0-34.0); Mean Corpuscular Volume 90.3 fL (80.0-100.0); Mean Platelet Volume 8.5 fL (7.0-11.0); Mono # (Auto) 0.6 th/mm3 (0.0-0.9); Mono % (Auto) 6.6 % (0.0-8.0); Neut # (Auto) 5.7 th/mm3 (1.8-7.7); Neut % (Auto) 63.9 % (16.0-70.0); Platelet Count 245 th/mm3 (150-450); Red Blood Count 2.56 mil/mm3 (4.50-5.90); Red Cell Distribution Width 14.5 % (11.6-17.2); White Blood Count 8.9 th/mm3 (4.0-11.0)
[2018-05-25 09:33] LABS: Alanine Aminotransferase 21 U/L (12-78); Albumin 3.3 g/dL (3.4-5.0); Anion Gap 5 meq/L (5-15); Aspartate Aminotransferase 15 U/L (15-37); Blood Urea Nitrogen 16 mg/dL (7-18); Carbon Dioxide 28.1 meq/L (21.0-32.0); Chloride 111 meq/L (98-107); Glomerular Filtration Rate 76 mL/min (>89); Glucose,Random 96 mg/dL (74-106); Potassium 3.8 meq/L (3.5-5.1); Sodium 144 meq/L (136-145)
[2018-05-25 09:36] LABS: Alkaline Phosphatase 40 U/L (45-117); Total Protein 6.3 g/dL (6.4-8.2)
[2018-05-25] MEDS: Sod Chloride 0.9% Inj 1,000 ML IV.CONT SCH (10:43)
[2018-05-25] MEDS: Senna/Docusate Sodium 8.6/50 MG Tablet PO SCH ×2 (10:43→21:05)
[2018-05-25] MEDS ORDERED: Phenylephrine/NS 1000 MCG/10ML Syringe IV.PUSH ONE (11:20)
[2018-05-25] MEDS ORDERED: Lidocaine PF 1% Inj 5 ML Syringe OTHER ONE (11:20)
--- NOTE | 2018-05-25 12:56 | P.PNNS ---
Subjective Interval history: sitting up in chair, doing well, reports of persistent paresthesias in his hands <Terri Moreno - Last Filed: 05/25/18 12:50> Physical Exam Vital signs: Vital Signs 05/24/18 13:00 05/24/18 14:00 05/24/18 15:00 Temperature Pulse Rate 89 79 72 Respiratory Rate 18 18 14 Blood Pressure 98/64 L 109/58 L 112/57 L Pulse Oximetry 100 96 100 05/24/18 16:00 05/24/18 17:00 05/24/18 18:00 Temperature 98.8 F Pulse Rate 73 85 91 H Respiratory Rate 17 18 18 Blood Pressure 104/59 L 128/66 126/62 Pulse Oximetry 98 05/24/18 19:03 05/24/18 19:05 05/24/18 20:00 Temperature Pulse Rate 103 H 98 H 84 Respiratory Rate 18 19 Blood Pressure 131/64 Pulse Oximetry 05/24/18 22:00 05/24/18 23:43 05/25/18 00:00 Temperature 99.2 F 99.2 F Pulse Rate 88 89 83 Respiratory Rate 17 14 Blood Pressure 102/53 L 102/53 L Pulse Oximetry 95 93 L 05/25/18 01:00 05/25/18 01:01 05/25/18 01:02 Temperature Pulse Rate 80 81 81 Respiratory Rate 13 14 13 Blood Pressure 86/51 L 86/51 L Pulse Oximetry 96 96 96 05/25/18 01:03 05/25/18 01:04 05/25/18 01:34 Temperature Pulse Rate 78 85 86 Respiratory Rate 13 21 30 H Blood Pressure 82/50 L 102/54 L Pulse Oximetry 97 99 98 05/25/18 02:00 05/25/18 03:58 05/25/18 03:59 Temperature 99.2 F Pulse Rate 72 75 Respiratory Rate 11 L Blood Pressure 94/65 L 102/56 L Pulse Oximetry 100 98 05/25/18 04:00 05/25/18 05:00 05/25/18 06:00 Temperature Pulse Rate 72 75 76 Respiratory Rate 11 L 13 15 Blood Pressure 94/64 L 93/52 L Pulse Oximetry 97 100 97 05/25/18 07:00 05/25/18 08:14 05/25/18 09:00 Temperature 98.8 F Pulse Rate 69 71 71 Respiratory Rate 25 H 21 18 Blood Pressure 95/53 L 109/59 L Pulse Oximetry 96 100 100 05/25/18 10:23 Temperature Pulse Rate 79 Respiratory Rate Blood Pressure 135/74 Pulse Oximetry Intake & Output 05/24/18 05/25/18 05/25/18 18:59 06:59 18:59 Intake Total 1662 / 1662 578 / 578 200 / 200 Balance 1662 / 1662 578 / 578 200 / 200 Weight 90 kg Intake: IV 1662 / 1662 78 / 78 Protonix Inj 80 MG In NS Inj 122 / 122 78 / 78 100 ML @ 10 mls/hr IV.CONT CONT [facility] Rx#:[id number] NS Inj 1,000 ML @ 84 mls/hr IV. 1540 / 1540 CONT .[id number] [facility] Rx#:[id number] Oral 500 / 500 Anesthesia Amount 200 / 200 Other: # Voids 4 3 Date of Last Bowel Movement 05/24/18 05/24/18 05/25/18 # Bowel Movements 3 1 3 Narrative: awake and alert. He is oriented x3. Cranial nerve testing 2-12 are grossly intact. Motor examination found both to be within normal limits. Power testing was 5+/5+ throughout with 4.5/5+ weakness of the finger extensors, interosseous bilaterally, as well as the hip flexors bilaterally. Otherwise, it was 5+/5+ throughout. Sensory examination was intact to light touch and position throughout with some diminished to light touch distally in his hands and fingers bilaterally. Deep tendon reflexes appeared to be 3-4+ and symmetric with bilateral inverted radial reflexes, as well as 1 or 2 beats of clonus noted bilaterally in both lower extremities. <Terri Moreno - Last Filed: 05/25/18 12:50> Vital signs: Vital Signs 05/24/18 14:00 05/24/18 15:00 05/24/18 16:00 Temperature Pulse Rate 79 72 73 Respiratory Rate 18 14 17 Blood Pressure 109/58 L 112/57 L 104/59 L Pulse Oximetry 96 100 98 05/24/18 17:00 05/24/18 18:00 05/24/18 19:03 Temperature 98.8 F Pulse Rate 85 91 H 103 H Respiratory Rate 18 18 18 Blood Pressure 128/66 126/62 131/64 Pulse Oximetry 05/24/18 19:05 05/24/18 20:00 05/24/18 22:00 Temperature Pulse Rate 98 H 84 88 Respiratory Rate 19 Blood Pressure Pulse Oximetry 05/24/18 23:43 05/25/18 00:00 05/25/18 01:00 Temperature 99.2 F 99.2 F Pulse Rate 89 83 80 Respiratory Rate 17 14 13 Blood Pressure 102/53 L 102/53 L Pulse Oximetry 95 93 L 96 05/25/18 01:01 05/25/18 01:02 05/25/18 01:03 Temperature Pulse Rate 81 81 78 Respiratory Rate 14 13 13 Blood Pressure 86/51 L 86/51 L 82/50 L Pulse Oximetry 96 96 97 05/25/18 01:04 05/25/18 01:34 05/25/18 02:00 Temperature 99.2 F Pulse Rate 85 86 72 Respiratory Rate 21 30 H Blood Pressure 102/54 L 94/65 L Pulse Oximetry 99 98 100 05/25/18 03:58 05/25/18 03:59 05/25/18 04:00 Temperature Pulse Rate 75 72 Respiratory Rate 11 L 11 L Blood Pressure 102/56 L Pulse Oximetry 98 97 05/25/18 05:00 05/25/18 06:00 05/25/18 07:00 Temperature Pulse Rate 75 76 69 Respiratory Rate 13 15 25 H Blood Pressure 94/64 L 93/52 L 95/53 L Pulse Oximetry 100 97 96 05/25/18 08:14 05/25/18 09:00 05/25/18 10:23 Temperature 98.8 F Pulse Rate 71 71 79 Respiratory Rate 21 18 Blood Pressure 109/59 L 135/74 Pulse Oximetry 100 100 05/25/18 12:26 05/25/18 12:43 Temperature Pulse Rate 66 67 Respiratory Rate 13 21 Blood Pressure 124/66 125/66 Pulse Oximetry 100 Intake & Output 05/24/18 05/25/18 05/25/18 18:59 06:59 18:59 Intake Total 1662 / 1662 578 / 578 200 / 200 Balance 1662 / 1662 578 / 578 200 / 200 Weight 90 kg Intake: IV 1662 / 1662 78 / 78 Protonix Inj 80 MG In NS Inj 122 / 122 78 / 78 100 ML @ 10 mls/hr IV.CONT CONT [facility] Rx#:[id number] NS Inj 1,000 ML @ 84 mls/hr IV. 1540 / 1540 CONT .[id number] [facility] Rx#:[id number] Oral 500 / 500 Anesthesia Amount 200 / 200 Other: # Voids 4 3 Date of Last Bowel Movement 05/24/18 05/24/18 05/25/18 # Bowel Movements 3 1 3 <Pancho Awan - Last Filed: 05/25/18 13:39> Assessment and Plan - Plan 57 year old male suffered a syncopal episode resulting in a very mild closed blunt head injury and a traumatic brain injury with a small hemorrhagic brain contusion or possibly subarachnoid hemorrhage. His [place] coma scale remains 15. He may have suffered an occult cervical spine injury since the patient appears to present here with some neck pain and findings consistent with a cervical myelopathy. RECOMMENDATION AND PLAN: Include a conservative neurosurgical approach for his head injury. It probably is not needed that he undergo even any followup imaging of his head unless he is symptomatic or has headaches. In regard to his cervical spine, he needs a complete radiographic workup including a CT scan of the cervical spine and an MRI scan of the cervical spine. Depending results of this, as well as his clinical course, will determine the appropriate further diagnostic and therapeutic approach. Neurosurgery will follow. 05/25/2018 neurologically exam stable consistent with mild cord contusion and cervical myelopathy, recommend at this time to continue conservative treatment, physical and occupational therapy discussed with patient in detail and his questions answered will sign off at this time, please call prn, patient may follow up in the office on an as needed basis <Terri Moreno - Last Filed: 05/25/18 12:50> - Attending Attestation May 25, 2018 I personally interviewed and examined the patient. I reviewed the documentation , laboratory evaluation, and the imaging. I discussed the case with the neurosurgery team we formulated a plan which is as described above. I discussed the results of the workup with the patient. Clinically and neurologically he is stable and in fact somewhat improved this morning. A conservative neurosurgical approach is warranted. He should be referred for physical and occupational therapy as needed. I will sign off the case. Please reconsult as needed. He may follow-up in the neurosurgery clinic on an as- needed basis. <Pancho Awan - Last Filed: 05/25/18 13:39>
[2018-05-25] MEDS ORDERED: Morphine Inj 4 MG/ML Vial IV.PUSH PRN (13:19)
--- NOTE | 2018-05-25 16:40 | P.PNIM ---
Subjective Interval history: Pt denies any further melena or hematemesis since prior to admission He had EGD today and per report from nursing staff pt had a noted duodenal ulcer that was clipped and injected with Epi The EGD report isn't transcribed yet in the EHR Denies any abd pain, nausea/vomiting Pt is on a clear liquid diet. Physical Exam Vital signs: Last Vital Signs Temp 98.8 F 05/25/18 08:14 Pulse 67 05/25/18 12:43 Resp 21 05/25/18 12:43 BP 125/66 05/25/18 12:43 Pulse Ox 100 05/25/18 12:43 Narrative: General: NAD, AAOx3 Chest: CTA Cardiac: Regular Abd: +BS, soft ND/NT Ext: No edema Results Labs CBC & Chem 7: 05/25/18 08:05 05/25/18 08:[address] 05/23/18 18:00 CONCLUSION: 1. 7 mm hyperdensity in one right high parietal occipital gyrus characteristic of acute hemorrhage. 2. No evidence of mass effect or cerebral edema. 3. Recommend follow-up CT scans. Abdomen/Pelvis CT 05/23/18 18:08 CONCLUSION: 1. Negative CT abdomen/pelvis with contrast. Cervical Spine MRI 05/24/18 00:00 CONCLUSION: 1. Subtle increase in signal within the cord at C5-C6 seen best on the axial images. This is nonspecific. 2. Spinal stenosis doesn't appear significant enough to cause this 3. There is no increased signal within the interspinous ligaments to suggest ligamentous instability. 4. Controlled flexion-extension films would be of benefit to exclude acute instability. Cervical Spine CT 05/24/18 08:03 CONCLUSION: 1. Degenerative changes at C5-C6 and C6-C7 without fracture. Cervical Spine X-Ray 05/24/18 10:46 CONCLUSION: Degenerative changes at C5-C6 and C6-C7. No abnormal motion. Assessment and Plan Assessment (1) Acute GI bleeding: Code(s): K92.2 - Gastrointestinal hemorrhage, unspecified Status: Acute (2) Intraparenchymal hemorrhage of brain: Code(s): I61.9 - Nontraumatic intracerebral hemorrhage, unspecified Status: Acute Plan GIB PUD - Pt is a 57 y/o male with hx of diverticulitis who presented to the [facility] ED on 05/23/18 after a syncopal episode. The patient states that last week he was using some heavy concrete cutting equipment and was using Ibuprofen several times a day for a few days. Then he started having some lower abd pain that he thought was secondary to diverticulitis because the pain was similar to that. He then started having some melanotic stools and lightheadedness. On the day of admission he had nausea and an episode of coffee ground emesis. He later passed out when he was walking out of the bathroom after getting more lightheaded. - Pts labs at admission noted Hgb 10.5/Hct 31.1 - Abdomen/Pelvis CT (05/23/18) 1. Negative CT abdomen/pelvis with contrast. - Pt was started on a Protonix gtt - GI Following - Pt underwent EGD on 05/25/18 and per nursing report he had a duodenal ulcer that was clipped and injected with Epi. Full transcribed report is pending - Pts Hgb trended down from 10.5 (05/24) --> 8.6 (05/24) --> 9.1 (05/25) --> 8.0 () - Repeat Hgb is pending this afternoon - Pt may require transfusion if H/H continues to trend down - Clear liquid diet ordered and advancement per GI - Supportive care ICH Closed head injury - Imaging studies at admission included: - Head CT (05/23/18): 1. 7 mm hyperdensity in one right high parietal occipital gyrus characteristic of acute hemorrhage. 2. No evidence of mass effect or cerebral edema. 3. Recommend follow-up CT scans. - Cervical Spine MRI (05/24/18): 1. Subtle increase in signal within the cord at C5-C6 seen best on the axial images. This is nonspecific. 2. Spinal stenosis doesn't appear significant enough to cause this 3. There is no increased signal within the interspinous ligaments to suggest ligamentous instability. 4. Controlled flexion-extension films would be of benefit to exclude acute instability. - Cervical Spine CT (05/24/18): 1. Degenerative changes at C5-C6 and C6-C7 without fracture. - Neurosurgery is following. - Neurosurgery has concluded that the pt has a mild closed blunt head injury and a traumatic brain injury with a small hemorrhagic brain contusion or possibly subarachnoid hemorrhage. They also feel he may have suffered an occult cervical spine injury as the pt has complained of some neck pain and findings consistent with a cervical myelopathy. - They are recommending conservative management. - Cont. physical and occupational therapy Progress Note: Quality VTE Deep Vein Thrombosis/Pulmonary Embolism Present on Admission: No
[2018-05-25 17:33] LABS: Hematocrit 22.1 % (39.0-51.0); Hemoglobin 7.4 gm/dL (13.0-17.0)
[2018-05-25] MEDS: Pantoprazole Inj 80 MG in Sodium Chlor 0.9% Inj 100 ML IV.CONT SCH (19:47)
--- NOTE | 2018-05-25 20:20 | XR ---
EXAM DATE: 05/25/2018 8:14 PM EST AGE/SEX: 57 years / Male INDICATIONS: left hip pain after fall passing out. CLINICAL DATA: This is the patient's initial encounter. Patient reports that signs and symptoms have been present for 2 days and indicates a pain score of 3/10. MEDICAL/SURGICAL HISTORY: None. None. COMPARISON: No prior exams available for comparison. FINDINGS: Bony structures are intact and in normal alignment. Joints are intact without dislocation or signifi cant arthropathy. Osseous density is normal. Soft tissues are unremarkable. No radiopaque foreign bodies seen. CONCLUSION: No evidence of recent bony injury. Electronically signed by: Rajan Restrepo MD Board Certified Radiologist 05/25/2018 8:18 PM EST
[2018-05-25] MEDS ORDERED: Sodium Chlor 0.9% Inj 250 ML IV.SIG SCH (21:00)
[2018-05-26] MEDS: Chlorhexidine Gluconate 2% 1 Pack (2 Cloths) TOPICAL SCH (03:32)
[2018-05-26] MEDS: Sod Chloride 0.9% Inj 1,000 ML IV.CONT SCH ×3 (03:32→23:28)
[2018-05-26 03:48] LABS: Baso # (Auto) 0.1 th/mm3 (0.0-0.2); Baso % (Auto) 1.1 % (0.0-2.0); Eos # (Auto) 0.3 th/mm3 (0.0-0.4); Eos % (Auto) 2.8 % (0.0-4.0); Hematocrit 27.9 % (39.0-51.0); Hemoglobin 9.7 gm/dL (13.0-17.0); Lymph # (Auto) 2.6 th/mm3 (1.0-4.8); Mean Corpuscular HGB Conc 34.9 % (32.0-36.0); Mean Corpuscular Hemoglobin 30.4 pg (27.0-34.0); Mean Corpuscular Volume 87.2 fL (80.0-100.0); Mono # (Auto) 0.8 th/mm3 (0.0-0.9); Mono % (Auto) 7.3 % (0.0-8.0); Neut # (Auto) 6.6 th/mm3 (1.8-7.7); Neut % (Auto) 63.8 % (16.0-70.0); Platelet Count 220 th/mm3 (150-450); Red Cell Distribution Width 14.9 % (11.6-17.2); White Blood Count 10.4 th/mm3 (4.0-11.0)
[2018-05-26 04:10] LABS: Albumin 3.1 g/dL (3.4-5.0); Anion Gap 7 meq/L (5-15); Aspartate Aminotransferase 15 U/L (15-37); Blood Urea Nitrogen 10 mg/dL (7-18); Calcium 8.2 mg/dL (8.5-10.1); Carbon Dioxide 27.3 meq/L (21.0-32.0); Chloride 108 meq/L (98-107); Glomerular Filtration Rate 87 mL/min (>89); Glucose,Random 97 mg/dL (74-106); Potassium 3.6 meq/L (3.5-5.1); Sodium 142 meq/L (136-145)
[2018-05-26 04:11] LABS: Alanine Aminotransferase 18 U/L (12-78); Phosphorus 3.2 mg/dL (2.5-4.9)
[2018-05-26 04:13] LABS: Alkaline Phosphatase 39 U/L (45-117); Total Protein 6.1 g/dL (6.4-8.2)
[2018-05-26] MEDS: Senna/Docusate Sodium 8.6/50 MG Tablet PO SCH ×2 (08:44→21:45)
[2018-05-26 15:31] LABS: Baso # (Auto) 0.1 th/mm3 (0.0-0.2); Baso % (Auto) 0.8 % (0.0-2.0); Eos # (Auto) 0.3 th/mm3 (0.0-0.4); Eos % (Auto) 3.5 % (0.0-4.0); Hemoglobin 10.4 gm/dL (13.0-17.0); Lymph # (Auto) 2.6 th/mm3 (1.0-4.8); Lymph % (Auto) 27.9 % (9.0-44.0); Mean Corpuscular HGB Conc 34.6 % (32.0-36.0); Mean Corpuscular Hemoglobin 30.4 pg (27.0-34.0); Mean Corpuscular Volume 87.7 fL (80.0-100.0); Mean Platelet Volume 8.3 fL (7.0-11.0); Mono # (Auto) 0.6 th/mm3 (0.0-0.9); Neut # (Auto) 5.7 th/mm3 (1.8-7.7); Neut % (Auto) 61.8 % (16.0-70.0); Platelet Count 251 th/mm3 (150-450); Red Blood Count 3.42 mil/mm3 (4.50-5.90); Red Cell Distribution Width 15.1 % (11.6-17.2); White Blood Count 9.2 th/mm3 (4.0-11.0)
--- NOTE | 2018-05-26 17:30 | P.PNIM ---
Subjective Interval history: No reported melena or BRBPR Pt tolerating clear liquid diet No new complaints Pt somewhat anxious Physical Exam Vital signs: Last Vital Signs Temp 99.7 F H 05/26/18 04:00 Pulse 64 05/26/18 16:00 Resp 14 05/26/18 16:00 BP 118/64 05/26/18 16:00 Pulse Ox 100 05/26/18 16:00 Narrative: General: NAD, AAOx3 Chest: CTA Cardiac: Regular Abd: +BS, soft ND/NT Ext: No edema Results Labs CBC & Chem 7: 05/26/18 14:45 05/26/18 03:36 Assessment and Plan Assessment (1) Acute GI bleeding: Code(s): K92.2 - Gastrointestinal hemorrhage, unspecified Status: Acute (2) Intraparenchymal hemorrhage of brain: Code(s): I61.9 - Nontraumatic intracerebral hemorrhage, unspecified Status: Acute Plan GIB PUD - Pt is a 57 y/o male with hx of diverticulitis who presented to [place] [facility] [place] on 05/23/18 after a syncopal episode. The patient states that last week he was using some heavy concrete cutting equipment and was using Ibuprofen several times a day for a few days. Then he started having some lower abd pain that he thought was secondary to diverticulitis because the pain was similar to that. He then started having some melanotic stools and lightheadedness. On the day of admission he had nausea and an episode of coffee ground emesis. He later passed out when he was walking out of the bathroom after getting more lightheaded. - Pts labs at admission noted Hgb 10.5/Hct 31.1 - Abdomen/Pelvis CT (05/23/18) 1. Negative CT abdomen/pelvis with contrast. - Pt was started on a Protonix gtt - GI Following - Pt underwent EGD on 05/25/18 --> small bleeding, linear deep ulcer with an adherent clot in the duodenal bulb, hemostasis was attempted by placing three hemoclips on the bleeding site and injecting 5mL of epi - Pts Hgb trended down from 10.5 (05/24) --> 8.6 (05/24) --> 9.1 (05/25) --> 8.0 () --> 7.4 (05/25) - Pt received 2 units of PRBCs on 05/25 - Repeat H/H on 05/26 with 9.7/27.9 --> 10.4/30.0 - Clear liquid diet ordered and advancement per GI - Protonix gtt to be converted to Protonix 40mg IV BID - Transfer out of ICU to medical floor - Repeat labs in AM - Supportive care ICH Closed head injury - Imaging studies at admission included: - Head CT (05/23/18): 1. 7 mm hyperdensity in one right high parietal occipital gyrus characteristic of acute hemorrhage. 2. No evidence of mass effect or cerebral edema. 3. Recommend follow-up CT scans. - Cervical Spine MRI (05/24/18): 1. Subtle increase in signal within the cord at C5-C6 seen best on the axial images. This is nonspecific. 2. Spinal stenosis doesn't appear significant enough to cause this 3. There is no increased signal within the interspinous ligaments to suggest ligamentous instability. 4. Controlled flexion-extension films would be of benefit to exclude acute instability. - Cervical Spine CT (05/24/18): 1. Degenerative changes at C5-C6 and C6-C7 without fracture. - Neurosurgery is following. - Neurosurgery has concluded that the pt has a mild closed blunt head injury and a traumatic brain injury with a small hemorrhagic brain contusion or possibly subarachnoid hemorrhage. They also feel he may have suffered an occult cervical spine injury as the pt has complained of some neck pain and findings consistent with a cervical myelopathy. - They are recommending conservative management. - Cont. physical and occupational therapy Progress Note: Quality VTE Deep Vein Thrombosis/Pulmonary Embolism Present on Admission: No
--- NOTE | 2018-05-26 21:10 | P.PNGI ---
Subjective Interval history: Patient sitting up in chair Denies melena or bright red blood per rectum Tolerating clear liquid diet No apparent distress Physical Exam Vital signs: Vital Signs 05/25/18 21:16 05/25/18 21:20 05/25/18 21:26 Temperature 99.4 F 99.8 F H Pulse Rate 81 82 84 Respiratory Rate 20 16 22 Blood Pressure 131/60 131/60 131/60 Pulse Oximetry 97 96 05/25/18 21:30 05/25/18 21:39 05/25/18 21:40 Temperature 98.8 F Pulse Rate 79 76 79 Respiratory Rate 14 14 20 Blood Pressure 133/63 117/58 L 117/58 L Pulse Oximetry 97 97 97 05/25/18 21:54 05/25/18 22:00 05/25/18 22:09 Temperature Pulse Rate 74 70 77 Respiratory Rate 14 13 16 Blood Pressure 128/60 128/60 Pulse Oximetry 98 97 97 05/25/18 22:24 05/25/18 22:56 05/25/18 23:00 Temperature Pulse Rate 75 72 69 Respiratory Rate 28 H 20 12 Blood Pressure 128/63 140/63 134/60 Pulse Oximetry 98 99 98 05/26/18 00:00 05/26/18 01:00 05/26/18 02:00 Temperature 99.8 F H Pulse Rate 80 76 81 Respiratory Rate 15 16 23 Blood Pressure 132/60 131/60 154/67 H Pulse Oximetry 98 100 99 05/26/18 03:12 05/26/18 04:00 05/26/18 05:00 Temperature 99.7 F H Pulse Rate 73 72 71 Respiratory Rate 13 13 Blood Pressure 149/75 H 152/70 H 144/62 H Pulse Oximetry 99 100 05/26/18 06:00 05/26/18 06:52 05/26/18 07:00 Temperature Pulse Rate 72 92 H 78 Respiratory Rate 21 20 17 Blood Pressure 135/59 L 139/66 145/81 H Pulse Oximetry 100 94 L 99 05/26/18 08:00 05/26/18 09:00 05/26/18 10:00 Temperature Pulse Rate 69 76 68 Respiratory Rate 20 19 14 Blood Pressure 113/65 145/76 H Pulse Oximetry 100 100 100 05/26/18 10:23 05/26/18 11:00 05/26/18 12:00 Temperature Pulse Rate 71 72 78 Respiratory Rate 17 18 Blood Pressure 145/76 H 117/61 Pulse Oximetry 100 100 05/26/18 12:01 05/26/18 13:00 05/26/18 14:00 Temperature Pulse Rate 74 66 69 Respiratory Rate 21 22 16 Blood Pressure 117/64 Pulse Oximetry 100 100 100 05/26/18 15:00 05/26/18 16:00 05/26/18 17:00 Temperature Pulse Rate 65 64 64 Respiratory Rate 22 14 26 H Blood Pressure 118/64 118/64 131/74 Pulse Oximetry 100 100 99 05/26/18 17:38 05/26/18 18:00 Temperature Pulse Rate 65 65 Respiratory Rate 25 H Blood Pressure 131/74 Pulse Oximetry 100 Intake & Output 05/26/18 05/26/18 05/27/18 06:59 18:59 06:59 Intake Total 850 / 850 350 / 350 Balance 850 / 850 350 / 350 Weight 92.3 kg Intake: IV 350 / 350 Protonix Inj 80 MG In NS Inj 100 / 100 100 ML @ 10 mls/hr IV.CONT CONT DIDIER Rx#:[id number] NS Inj 250 ML @ 15 mls/hr IV. 250 / 250 SIG ONCE DIDIER Rx#:[id number] Oral 50 / 50 Intake (Blood Product) Amt 800 / 800 Rbc As-3 Leukoreduced Unit 400 / 400 [id number] Rbc As-3 Leukoreduced Unit 400 / 400 [id number] Other: # Voids 4 6 Date of Last Bowel Movement 05/25/18 - Constitutional no acute distress, cooperative - Routine HEENT Exam Head: Present: normocephalic - Routine Respiratory Exam Present: CTA bilaterally. Absent: accessory muscle use - Routine Abdominal Exam Present: soft, normoactive bowel sounds. Absent: tenderness, distended - Routine Skin Exam Present: dry, warm. Absent: pallor - Routine Neurological Exam Present: alert, oriented X3 Results - Labs CBC & Chem 7: 05/26/18 14:45 05/26/18 03:36 Laboratory Results - last 24 hr 05/25/18 05/26/18 05/26/18 20:26 03:36 03:36 WBC 10.4 RBC 3.20 L Hgb 9.7 L D Hct 27.9 L MCV 87.2 MCH 30.4 MCHC 34.9 RDW 14.9 Plt Count 220 MPV 8.0 Neut % (Auto) 63.8 Lymph % (Auto) 25.0 [place] % (Auto) 7.3 Eos % (Auto) 2.8 Baso % (Auto) 1.1 Neut # (Auto) 6.6 Lymph # (Auto) 2.6 [place] # (Auto) 0.8 Eos # (Auto) 0.3 Baso # (Auto) 0.1 WBC Differential . Differential Comment Auto diff final Sodium 142 Potassium 3.6 Chloride 108 H Carbon Dioxide 27.3 Anion Gap 7 BUN 10 Creatinine 0.90 Estimated GFR 87 L Random Glucose 97 Calcium 8.2 L Phosphorus 3.2 Magnesium 2.0 Total Bilirubin 1.0 AST 15 ALT 18 Alkaline Phosphatase 39 L Total Protein 6.1 L Albumin 3.1 L MTS Gel Crossmatch See Detail Bld Prod Order Comment 05/26/18 14:45 WBC 9.2 RBC 3.42 L Hgb 10.4 L Hct 30.0 L MCV 87.7 MCH 30.4 MCHC 34.6 RDW 15.1 Plt Count 251 MPV 8.3 Neut % (Auto) 61.8 Lymph % (Auto) 27.9 [place] % (Auto) 6.0 Eos % (Auto) 3.5 Baso % (Auto) 0.8 Neut # (Auto) 5.7 Lymph # (Auto) 2.6 [place] # (Auto) 0.6 Eos # (Auto) 0.3 Baso # (Auto) 0.1 WBC Differential . Differential Comment Auto diff final Sodium Potassium Chloride Carbon Dioxide Anion Gap BUN Creatinine Estimated GFR Random Glucose Calcium Phosphorus Magnesium Total Bilirubin AST ALT Alkaline Phosphatase Total Protein Albumin MTS Gel Crossmatch Bld Prod Order Comment Assessment and Plan (1) Acute GI bleeding Status: Acute Code(s): K92.2 - Gastrointestinal hemorrhage, unspecified - Plan 1. GI bleeding. Melena, coffee-ground emesis x1, dark red stool with clots x1 2. Left lower quadrant pain, history of recurrent diverticulitis. Recent CT with no evidence of active diverticulitis. 3. Acute GI blood loss anemia. 4. History of colon polyps, last colonoscopy 5 years ago. 05/26/2018 GI bleed Patient denies melena stools or hematochezia No obvious bleeding with reported 05/25/2018 EGD revealed the following: The mucosa of the stomach appeared normal There was a short stricture in the distal esophagus Normal duodenal mucosa in the second part of the duodenum Small ulcer was found in the duodenal bulb; hemostasis was attempted by placing 3 hemoclips on the bleeding site; submucosal injection of 5 mL's epinephrine 1 2 10,000 was performed around the bleeding site. Retroflex views revealed no abnormalities Hemoglobin 10.4 hematocrit 30.0 Plan Advance to full liquid diet Pantoprazole 40 mg po twice daily Avoid NSAIDs Avoid anticoagulants EGD as needed Patient to follow-up with GI post discharge in 1 week Supportive care This patient was seen by myself and Dr. Marroquin and this note is written on his behalf - Attending Attestation Dr. Marroquin
[2018-05-27 00:50] VITALS: TEMP 98.6
[2018-05-27] MEDS: Chlorhexidine Gluconate 2% 1 Pack (2 Cloths) TOPICAL SCH (03:37)
[2018-05-27] MEDS ORDERED: Acetaminophen 325 MG Tablet PO SCH (05:00)
[2018-05-27 05:49] LABS: Baso # (Auto) 0.1 th/mm3 (0.0-0.2); Baso % (Auto) 0.7 % (0.0-2.0); Eos # (Auto) 0.4 th/mm3 (0.0-0.4); Eos % (Auto) 4.8 % (0.0-4.0); Hematocrit 29.6 % (39.0-51.0); Hemoglobin 10.2 gm/dL (13.0-17.0); Lymph # (Auto) 2.2 th/mm3 (1.0-4.8); Lymph % (Auto) 26.2 % (9.0-44.0); Mean Corpuscular HGB Conc 34.6 % (32.0-36.0); Mean Corpuscular Hemoglobin 30.7 pg (27.0-34.0); Mean Corpuscular Volume 88.9 fL (80.0-100.0); Mean Platelet Volume 8.2 fL (7.0-11.0); Mono # (Auto) 0.7 th/mm3 (0.0-0.9); Mono % (Auto) 7.9 % (0.0-8.0); Neut # (Auto) 5.1 th/mm3 (1.8-7.7); Neut % (Auto) 60.4 % (16.0-70.0); Platelet Count 244 th/mm3 (150-450); Red Blood Count 3.33 mil/mm3 (4.50-5.90); Red Cell Distribution Width 14.9 % (11.6-17.2); White Blood Count 8.4 th/mm3 (4.0-11.0)
[2018-05-27 07:50] VITALS: BP 131/63; O2SAT 100
[2018-05-27] MEDS: Senna/Docusate Sodium 8.6/50 MG Tablet PO SCH (09:42)
[2018-05-27] MEDS: Sod Chloride 0.9% Inj 1,000 ML IV.CONT SCH (09:42)
--- NOTE | 2018-05-27 11:42 | P.PNGI ---
Subjective Interval history: Patient sitting in a chair no new complaints Patient stated ready to go home Tolerated meals this morning Agrees to follow-up as an outpatient Physical Exam Vital signs: Vital Signs 05/26/18 12:00 05/26/18 12:01 05/26/18 13:00 Temperature Pulse Rate 78 74 66 Respiratory Rate 21 22 Blood Pressure 117/64 Pulse Oximetry 100 100 05/26/18 14:00 05/26/18 15:00 05/26/18 16:00 Temperature Pulse Rate 69 65 64 Respiratory Rate 16 22 14 Blood Pressure 118/64 118/64 Pulse Oximetry 100 100 100 05/26/18 17:00 05/26/18 17:38 05/26/18 18:00 Temperature Pulse Rate 64 65 65 Respiratory Rate 26 H 25 H Blood Pressure 131/74 131/74 Pulse Oximetry 99 100 05/26/18 19:00 05/26/18 20:00 05/26/18 21:24 Temperature 98.9 F Pulse Rate 66 67 Respiratory Rate 19 16 Blood Pressure 124/87 Pulse Oximetry 100 99 100 05/26/18 21:30 05/26/18 22:00 05/26/18 23:00 Temperature Pulse Rate 65 63 64 Respiratory Rate 21 16 22 Blood Pressure 134/73 Pulse Oximetry 100 99 100 05/26/18 23:03 05/26/18 23:04 05/27/18 00:00 Temperature 98.6 F Pulse Rate 67 66 Respiratory Rate 13 Blood Pressure 126/58 L Pulse Oximetry 95 05/27/18 00:48 05/27/18 01:00 05/27/18 02:00 Temperature Pulse Rate 71 65 60 Respiratory Rate 29 H 30 H Blood Pressure Pulse Oximetry 94 L 96 05/27/18 02:54 05/27/18 03:00 05/27/18 04:00 Temperature 98.6 F Pulse Rate 76 67 66 Respiratory Rate 24 23 Blood Pressure Pulse Oximetry 94 L 93 L 05/27/18 05:00 05/27/18 06:00 05/27/18 07:00 Temperature Pulse Rate 66 57 L 62 Respiratory Rate 26 H 14 14 Blood Pressure Pulse Oximetry 100 100 98 05/27/18 07:36 05/27/18 08:00 05/27/18 09:00 Temperature Pulse Rate 63 53 L 57 L Respiratory Rate 22 16 15 Blood Pressure 131/63 Pulse Oximetry 100 100 100 05/27/18 10:00 Temperature Pulse Rate 73 Respiratory Rate 25 H Blood Pressure Pulse Oximetry 100 Intake & Output 05/26/18 05/27/18 05/27/18 18:59 06:59 18:59 Intake Total 350 / 350 480 / 480 Balance 350 / 350 480 / 480 Weight 92.3 kg Intake: IV 350 / 350 Protonix Inj 80 MG In NS Inj 100 / 100 100 ML @ 10 mls/hr IV.CONT CONT DIDIER Rx#:[id number] NS Inj 250 ML @ 15 mls/hr IV. 250 / 250 SIG ONCE DIDIER Rx#:[id number] Oral 480 / 480 Other: # Voids 6 5 # Bowel Movements 0 - Constitutional no acute distress - Routine HEENT Exam Head: Present: normocephalic - Routine Neck Exam Present: supple - Routine Respiratory Exam Present: CTA bilaterally - Routine Cardiovascular Exam Present: RRR, S1, S2 - Routine Abdominal Exam Present: soft, normoactive bowel sounds. Absent: tenderness, distended - Routine Extremities Exam Present: pulses intact - Routine Skin Exam Present: intact - Routine Neurological Exam Present: alert, oriented X3 Results - Labs CBC & Chem 7: 05/27/18 04:08 05/26/18 03:36 Laboratory Results - last 24 hr 05/26/18 05/27/18 14:45 04:08 WBC 9.2 8.4 RBC 3.42 L 3.33 L Hgb 10.4 L 10.2 L Hct 30.0 L 29.6 L MCV 87.7 88.9 MCH 30.4 30.7 MCHC 34.6 34.6 RDW 15.1 14.9 Plt Count 251 244 MPV 8.3 8.2 Neut % (Auto) 61.8 60.4 Lymph % (Auto) 27.9 26.2 [place] % (Auto) 6.0 7.9 Eos % (Auto) 3.5 4.8 H Baso % (Auto) 0.8 0.7 Neut # (Auto) 5.7 5.1 Lymph # (Auto) 2.6 2.2 [place] # (Auto) 0.6 0.7 Eos # (Auto) 0.3 0.4 Baso # (Auto) 0.1 0.1 WBC Differential . . Differential Comment Auto diff final Auto diff final Assessment and Plan (1) Acute GI bleeding Status: Acute Code(s): K92.2 - Gastrointestinal hemorrhage, unspecified (2) History of esophagogastroduodenoscopy (EGD) Status: Acute Code(s): Z98.890 - Other specified postprocedural states - Plan 1. GI bleeding. Melena, coffee-ground emesis x1, dark red stool with clots x1 2. Left lower quadrant pain, history of recurrent diverticulitis. Recent CT with no evidence of active diverticulitis. 3. Acute GI blood loss anemia. 4. History of colon polyps, last colonoscopy 5 years ago. 05/26/2018 GI bleed Patient denies melena stools or hematochezia No obvious bleeding with reported 05/25/2018 EGD revealed the following: The mucosa of the stomach appeared normal There was a short stricture in the distal esophagus Normal duodenal mucosa in the second part of the duodenum Small ulcer was found in the duodenal bulb; hemostasis was attempted by placing 3 hemoclips on the bleeding site; submucosal injection of 5 mL's epinephrine 1 2 10,000 was performed around the bleeding site. Retroflex views revealed no abnormalities Hemoglobin 10.4 hematocrit 30.0 05/27/2018 Assessment Upper and lower GI bleed -patient was complaining of both melena and coffee- ground emesis but has resolved Status post EGD with coiling 3 hemoclips of duodenal ulcer Anemia -labs today hemoglobin 10.2 hematocrit 29.6 platelet 244 WBC 8.4 Plan Regular diet avoid spicy food Protonix 40 mg p.o. twice daily Avoid NSAIDs use Avoid anticoagulants Patient to follow-up with GI post 1 week after discharge. May repeat EGD for visualization of healing or for more bleeding Supportive care GI will signed off patient is okay to [place] home from GI standpoint This patient was seen by myself and Dr. Marroquin and this note is written on his behalf - Attending Attestation Dr. Marroquin
--- NOTE | 2018-05-27 11:53 | P.DS ---
DS: Providers Date of admission: Admit: 05/23/18 Discharge 05/27/18 Primary care physician: Nnamdi Miller MD Consults: 05/23/18 21:08 Consult to Gastroenterology Routine Consulting Provider: Sonu Yung Reason for Consultation: Upper GI bleed, patient thinks he may have seen Dr. Hunter in the past Notified:: Service Spoke with:: Brant Date Notified:: 05/23/18 Time Notified:: 22:49 Ordering Provider: JOVANNA 05/23/18 21:12 Consult to Neurosurgery Routine Consulting Provider: Pancho Awan Patient known to:: Pancho Awan Reason for Consultation: small ICH s/p syncopal episode Spoke with:: WILL CALL IN THE AM ADD TO LIST Date Notified:: 05/23/18 Time Notified:: 22:53 Ordering Provider: JOVANNA 05/24/18 21:07 Consult to Hospitalist Routine Consulting Provider: Edu Lewis Reason for Consultation: AMS Notified:: Service Spoke with:: LESTER Date Notified:: 05/24/18 Time Notified:: 08:18 Comments:: Ordering Provider: RAJWINDER Brief History from admission: 57yM presenting with syncope. The patient states that he has a history of diverticulitis, and over the past week has been having "sharp/ aching" LLQ abdominal pain which radiates to the midline, constant, worse with movement or palpation and not improved by anything, associated with nausea and melena. He says that earlier today, he had nausea and an episode of coffee ground emesis. He says that he tried to stand up to go to the bathroom when he began to feel "lightheaded like I was going to pass out" and the next thing he remembers is waking up on the floor. He initially presented to the emergency department at [place], where he was found to have (+) stool guaiac and small ICH. He denies use of anticoagulants/ antiplatelets but admits to using at least 800 mg of Motrin per day for the past several weeks for chronic low back pain. Family history non-contributory. The patient thinks he may have seen Dr. Hunter of GI in the past but isn't sure ; he's had a colonoscopy previously but is unsure if he's had an endoscopy. No known history of PUD. DS: Diagnosis Discharge Diagnosis (1) Acute GI bleeding: Status: Acute (2) History of esophagogastroduodenoscopy (EGD): Status: Acute DS: Summary GIB PUD - Pt is a 57 y/o male with hx of diverticulitis who presented to the [facility] [place] [facility] on 05/23/18 after a syncopal episode. The patient states that last week he was using some heavy concrete cutting equipment and was using Ibuprofen several times a day for a few days. Then he started having some lower abd pain that he thought was secondary to diverticulitis because the pain was similar to that. He then started having some melanotic stools and lightheadedness. On the day of admission he had nausea and an episode of coffee ground emesis. He later passed out when he was walking out of the bathroom after getting more lightheaded. - Pts labs at admission noted Hgb 10.5/Hct 31.1 - Abdomen/Pelvis CT (05/23/18) 1. Negative CT abdomen/pelvis with contrast. - Pt was started on a Protonix gtt - GI Following - Pt underwent EGD on 05/25/18 --> small bleeding, linear deep ulcer with an adherent clot in the duodenal bulb, hemostasis was attempted by placing three hemoclips on the bleeding site and injecting 5mL of epi - Pts Hgb trended down from 10.5 (05/24) --> 8.6 (05/24) --> 9.1 (05/25) --> 8.0 () --> 7.4 (05/25) - Pt received 2 units of PRBCs on 05/25 - Repeat H/H on 05/26 with 9.7/27.9 --> 10.4/30.0 - Case d/w GI service (05/27). Will advance diet and discharge to home if tolerates. GI agrees - F/U with [facility], Dr. Marroquin, in 1 week - Protonix 40mg PO BID. - see discharge orders ICH Closed head injury - Imaging studies at admission included: - Head CT (05/23/18): 1. 7 mm hyperdensity in one right high parietal occipital gyrus characteristic of acute hemorrhage. 2. No evidence of mass effect or cerebral edema. 3. Recommend follow-up CT scans. - Cervical Spine MRI (05/24/18): 1. Subtle increase in signal within the cord at C5-C6 seen best on the axial images. This is nonspecific. 2. Spinal stenosis doesn't appear significant enough to cause this 3. There is no increased signal within the interspinous ligaments to suggest ligamentous instability. 4. Controlled flexion-extension films would be of benefit to exclude acute instability. - Cervical Spine CT (05/24/18): 1. Degenerative changes at C5-C6 and C6-C7 without fracture. - Neurosurgery is following. - Neurosurgery has concluded that the pt has a mild closed blunt head injury and a traumatic brain injury with a small hemorrhagic brain contusion or possibly subarachnoid hemorrhage. They also feel he may have suffered an occult cervical spine injury as the pt has complained of some neck pain and findings consistent with a cervical myelopathy. - They are recommending conservative management. - Physical Therapy is recommending discharge home NO physical therapy. - Case d/w Dr. Luis Lawrence, Neurosurgeon, (05/27/18). He agrees with discharge. - f/u with Dr. Lawrence in 2 weeks. Time Spent with Patient Total time spent providing and/or coordinating discharge services: Quality: VTE Deep Vein Thrombosis/Pulmonary Embolism Present on Admission: No Results Labs on day of discharge: Labs from last 24 hours 05/27/18 05/26/18 04:08 14:45 WBC 8.4 9.2 RBC 3.33 L 3.42 L Hgb 10.2 L 10.4 L Hct 29.6 L 30.0 L MCV 88.9 87.7 MCH 30.7 30.4 MCHC 34.6 34.6 RDW 14.9 15.1 Plt Count 244 251 MPV 8.2 8.3 Neut % (Auto) 60.4 61.8 Lymph % (Auto) 26.2 27.9 Bowie % (Auto) 7.9 6.0 Eos % (Auto) 4.8 H 3.5 Baso % (Auto) 0.7 0.8 Neut # (Auto) 5.1 5.7 Lymph # (Auto) 2.2 2.6 Bowie # (Auto) 0.7 0.6 Eos # (Auto) 0.4 0.3 Baso # (Auto) 0.1 0.1 WBC Differential . . Differential Comment Auto diff final Auto diff final Impressions ITS Impressions Head CT 05/23/18 18:00 CONCLUSION: 1. 7 mm hyperdensity in one right high parietal occipital gyrus characteristic of acute hemorrhage. 2. No evidence of mass effect or cerebral edema. 3. Recommend follow-up CT scans. . . Abdomen/Pelvis CT 05/23/18 18:08 CONCLUSION: 1. Negative CT abdomen/pelvis with contrast. Cervical Spine MRI 05/24/18 00:00 CONCLUSION: 1. Subtle increase in signal within the cord at C5-C6 seen best on the axial images. This is nonspecific. 2. Spinal stenosis doesn't appear significant enough to cause this 3. There is no increased signal within the interspinous ligaments to suggest ligamentous instability. 4. Controlled flexion-extension films would be of benefit to exclude acute instability. Cervical Spine CT 05/24/18 08:03 CONCLUSION: 1. Degenerative changes at C5-C6 and C6-C7 without fracture. Cervical Spine X-Ray 05/24/18 10:46 CONCLUSION: Degenerative changes at C5-C6 and C6-C7. No abnormal motion. Hip X-Ray 05/25/18 00:00 CONCLUSION: No evidence of recent bony injury. Discharge Plan Discharge Condition Condition: Critical Physicians Team Primary Care Provider: Nnamdi Miller Attending Provider: Carolyn Andrea Other Providers: Sonu Yung ; Pancho Awan ; Edu Lewis Rxs /Orders / Referrals /Forms Prescriptions: No Action calcium carbonate [Tums] 200 mg calcium (500 mg) Tablet,Chewable 400 mg PO BID RF: 0 Referrals: Nnamdi Miller MD [Primary Care Provider] - See Instructions Status ED Status: Left Department
[2018-05-27 12:08] VITALS: PULSE 65; RESP 17
== END 2018-05-27 14:13 | disposition home or self-care (01) | DRG 378 ==
LOC: PHED 17:57 → PHEDH 19:17 → N03 20:47
PROVIDERS: ADMIT Surgery Surgical Critical Care; ATTEND Surgery Surgical Critical Care
PROC: PANENDO (2018-05-25 11:20)
PROC: COLONOS (2018-05-25 11:20)
CPT/HCPCS: 36430; 70450; 72040; 72125; 72141; 73502; 74177; 80053; 81001; 82550; 82948; 82962; 83605; 83690; 83735; 84100; 84484; 85014; 85018; 85025; 85610; 85730; 86850; 86900; 86901; 86920; 86923; 87641; 90774; 93005; 94150; 96374; 97110; 97116; 97162; 99285; C8952; C9113; J0171; J2270; J2370; J2405; J2704; J7030; J7050; L0150; L0172; P9016; Q9967